=== PATIENT | female | born 1960 | race Caucasian/White ===

== ENCOUNTER 2016-12-19 09:12 | Emergency (ER) | payer SELFPAY ==
[2016-12-19] MEDS ORDERED: Nitrostat 0.4 MG (ED) SL ONE ×4 (09:29→14:48)
[2016-12-19] MEDS ORDERED: BABY ASPIRIN 81 MG CHEW PO ONE (09:29)
[2016-12-19] MEDS ORDERED: Sodium Chloride 0.9% 1000 ML 1,000 ML IV SCH (09:30)
[2016-12-19] MEDS ORDERED: BABY ASPIRIN 81 MG CHEW ONE (09:32)
[2016-12-19] MEDS ORDERED: Sodium Chloride 0.9% 1000 ML 1,000 ML ONE (09:33)
--- NOTE | 2016-12-19 09:37 | ERPHSYRPT ---
- History of Present Illness Time Seen by Provider: 12/19/16 09:20 Historian: patient Exam Limitations: clinical condition Patient Subjective Stated Complaint: CHEST PAIN FOR ONE HOUR Triage Nursing Assessment: AMBULATED TO ROOM PER SELF. SKIN W/D, COLOR NORMAL, RESP EASY. PAIN IS "5". NO EDEMA NOTED. DID HAVE SOME NAUSEA AND SOB. Physician History: PATIENT WITH HISTORY OF COPD, COMPLAINS OF ACUTE ONSET OF INDIGESTION, PRESSURE SUBSTERNAL DISCOMFORT OVER THE PAST PREVIOUS 2 HOURS. HAS ASSOCIATED LEFT ARM NUMBNESS, AND OCCASIONAL DYSPNEA, AND RADIATION OF THE PAIN TO HER BACK. DENIES COUGH, FEVER OR CHILLS. STATES HER PAIN SCALE 4/10. Timing/Duration: today Activities at Onset: none Location: substernal Chest Pain Radiation: arm, back Severity of Pain-Max: moderate Severity of Pain-Current: moderate Modifying Factors: Improves With: nothing Associated Symptoms: heartburn Prior Chest Pain/Cardiac Workup: no prior chest pain Nitro Today/Relief: 0.4 mg x 2, provided by ED Aspirin Treatment Today: 81 mg x 4, provided by ED Allergies/Adverse Reactions: betamethasone sodium phosphate [From [employer]] Allergy (Mild, Verified 12:04) "pt states blew a muscle in my back with it" Home Medications: Acetaminophen [Tylenol Arthritis] 650 mg PO Q4HPRN PRN 12/19/16 [History] Famotidine 20 mg [Pepcid 20 MG] 20 mg PO DAILY 12/19/16 [History] Hydrocodone/Acetaminophen [Hydrocodon-Acetaminoph 7.5-325] 1 each PO Q4HPRN PRN 12/19/16 [History] Lubiprostone [Amitiza] 8 mcg PO BID 12/19/16 [History] Modafinil [Provigil] 200 mg PO DAILY 12/19/16 [History] Varenicline Tartrate [Chantix] 1 mg PO DAILY 12/19/16 [History] Hx Tetanus, Diphtheria Vaccination/Date Given: Yes Hx Influenza Vaccination/Date Given: No Hx Pneumococcal Vaccination/Date Given: No - Review of Systems Constitutional: No Fever, No Chills Eyes: No Symptoms Ears, Nose, & Throat: No Symptoms Respiratory: No Symptoms, No Cough, No Dyspnea Cardiac: Chest Pain, No Edema, No Syncope Abdominal/Gastrointestinal: No Symptoms, No Abdominal Pain, No Nausea, No Vomiting, No Diarrhea Genitourinary Symptoms: No Symptoms, No Dysuria Musculoskeletal: No Symptoms, No Back Pain, No Neck Pain Skin: No Symptoms, No Rash Neurological: No Symptoms, No Dizziness, No Focal Weakness, No Sensory Changes Psychological: No Symptoms Endocrine: No Symptoms All Other Systems: Reviewed and Negative - Past Medical History Pertinent Past Medical History: Yes Neurological History: No Pertinent History ENT History: No Pertinent History Cardiac History: No Pertinent History Respiratory History: No Pertinent History Endocrine Medical History: No Pertinent History Musculoskeletal History: Arthritis, Degenerative Disk Disease GI Medical History: No Pertinent History History: No Pertinent History Psycho-Social History: No Pertinent History Female Reproductive Disorders: No Pertinent History Other Medical History: anemia,vericose veins. blisters on tongue - Past Surgical History Past Surgical History: Yes Neuro Surgical History: No Pertinent History Cardiac: No Pertinent History Respiratory: No Pertinent History Gastrointestinal: Cholecystectomy Genitourinary: No Pertinent History Musculoskeletal: No Pertinent History Female Surgical History: Hysterectomy Other Surgical History: bone spur left hand - Social History Smoking Status: Current every day smoker How long have you smoked: 20 years Exposure to second hand smoke: No Drug Use: none Patient Lives Alone: Yes - Female History Hx Now: No - Nursing Vital Signs Temperature: 97.8 F Temperature Source: Oral Pulse Rate: 85 Respiratory Rate: 16 Pain Intensity: 5 - Physical Exam General Appearance: no apparent distress, alert Eye Exam: PERRL/EOMI, eyes nml inspection Ears, Nose, Throat Exam: normal ENT inspection, moist mucous membranes Neck Exam: normal inspection, non-tender, supple, full range of motion Respiratory Exam: normal breath sounds, lungs clear, No respiratory distress Cardiovascular Exam: regular rate/rhythm, normal heart sounds Gastrointestinal/Abdomen Exam: soft, normal bowel sounds, other (NONTENDER), No tenderness, No mass Back Exam: normal inspection, No CVA tenderness, No vertebral tenderness Extremity Exam: normal inspection, normal range of motion Neurologic Exam: alert, oriented x 3, cooperative, normal mood/affect, sensation nml, No motor deficits Skin Exam: normal color, warm, dry SpO2 Interpretation: normal SpO2: 98 Oxygen Delivery: Room Air - Radiology Exams Chest X-ray Interpretation: Interpreted by me (COPD, HYPERINFLATION, NO INFILTRATES) - CT Exams Chest CT Interpretation: Tele-radiologist Report (NO EVIDENCE OF PULMONARY EMBOLISM, THERE IS MILD CENTRILOBULAR EMPHYSEMATOUS CHANGES ARE PRESENT, THERE IS NO FOCAL AIR SPACE OPACITIES) Ordered Tests: Active Orders 24 hr Category Date Time Status Supervisor Clam Bed STAT Care 12/19/16 09:29 Active EKG-ER Only STAT Care 12/19/16 09:29 Active EKG-ER Only STAT Care 12/19/16 10:48 Active EKG-ER Only STAT Care 12/19/16 13:53 Active IV Insertion STAT Care 12/19/16 09:47 Active IV Insertion-2nd Peripheral STAT Care 12/19/16 13:53 Active Oxygen-ED Only NASAL CANNULA 2 lpm Care 12/19/16 09:29 Active CHEST 1 VIEW (PORTABLE) Stat Exams 12/19/16 09:29 Taken CHEST WITH CONTRAST [CT] Stat Exams 12/19/16 10:43 Taken AMYLASE Stat Lab 12/19/16 09:15 Completed CBC W DIFF Stat Lab 12/19/16 09:15 Completed CMP Stat Lab 12/19/16 09:15 Completed D-DIMER QUANTITATION Stat Lab 12/19/16 09:15 Completed LIPASE Stat Lab 12/19/16 09:15 Completed PROTIME WITH INR Stat Lab 12/19/16 09:15 Completed TROPONIN Q3H Lab 12/19/16 09:15 Completed TROPONIN Q3H Lab 12/19/16 12:47 Completed Transfer Order Routine Transfer 12/19/16 13:29 Ordered Medication Summary Generic Name Dose Route Start Last Admin Trade Name Freq PRN Reason Stop Dose Admin Enoxaparin Sodium 50 mg 12/19/16 13:45 12/19/16 13:50 Enoxaparin Sodium SQ 01/18/17 13:44 50 mg Q12H DEBBY Administration Sodium Chloride 1,000 mls @ 100 mls/hr 12/19/16 09:30 12/19/16 09:35 Sodium Chloride 0.9% 1000 Ml IV 01/18/17 09:29 100 mls/hr .Q10H DEBBY Administration Nitroglycerin/Dextrose 250 mls @ 1.5 mls/hr 12/19/16 13:48 12/19/16 14:05 Ntg 0.2mg/Ml In D5w Glass IV 01/18/17 13:47 5 mcg/min .Q24H PRN 1.5 mls/hr CHEST PAIN Administration Protocol 5 MCG/MIN Discontinued Medications Generic Name Dose Route Start Last Admin Trade Name Lisa PRN Reason Stop Dose Admin Aspirin 324 mg 12/19/16 09:29 12/19/16 09:32 Baby Aspirin 81 Mg Chew PO 12/19/16 09:30 324 mg STAT ONE Administration Aspirin Confirm 12/19/16 09:32 Baby Aspirin 81 Mg Chew Administered 12/19/16 09:33 Dose 324 mg .ROUTE .STK-MED ONE Enoxaparin Sodium Confirm 12/19/16 13:38 Enoxaparin Sodium Administered 12/19/16 13:39 Dose 80 mg SQ .STK-MED ONE Morphine Sulfate 4 mg 12/19/16 09:42 12/19/16 09:49 Morphine Sulfate 4 Mg Inj IV 12/19/16 09:43 4 mg STAT ONE Administration Morphine Sulfate Confirm 12/19/16 09:46 Morphine Sulfate 4 Mg Inj Administered 12/19/16 09:47 Dose 4 mg .ROUTE .STK-MED ONE Nitroglycerin 0.4 mg 12/19/16 09:29 12/19/16 09:32 Nitrostat 0.4 Mg (Ed) SL 12/19/16 09:30 0.4 mg STAT ONE Administration Nitroglycerin Confirm 12/19/16 09:32 Nitrostat 0.4 Mg (Ed) Administered 12/19/16 09:33 Dose 0.4 mg SL .STK-MED ONE Nitroglycerin 0.4 mg 12/19/16 09:41 12/19/16 09:45 Nitrostat 0.4 Mg (Ed) SL 12/19/16 09:42 0.4 mg STAT ONE Administration Ondansetron HCl 4 mg 12/19/16 09:41 12/19/16 09:49 Zofran 4 Mg/2 Ml Vial IV 12/19/16 09:42 4 mg STAT ONE Administration Ondansetron HCl Confirm 12/19/16 09:46 Zofran 4 Mg/2 Ml Vial Administered 12/19/16 09:47 Dose 4 mg .ROUTE .STK-MED ONE Lab/Rad Data: Laboratory Result Diagrams 12/19/16 09:15 12/19/16 09:15 Laboratory Results 0512/19/16 12/19/16 Range/Units 12:47 09:15 09:15 WBC (4.0-10.5) K/mm3 RBC (4.1-5.4) M/mm3 Hgb (12.0-16.0) gm/dl Hct (35-47) % MCV (78-100) fl MCH (26-32) pg MCHC (32-36) g/dl RDW (11.5-14.0) % Plt Count (150-450) K/mm3 MPV (6-9.5) fl Gran % (36.0-66.0) % Lymphocytes % (24.0-44.0) % Monocytes % (0.0-12.0) % Eosinophils % (0.00-5.0) % Basophils % (0.0-0.4) % Basophils # (0-0.4) INR 0.94 (0.8-3.0) D-Dimer 0.73 H* (0.00-0.49) mg/L Sodium (136-145) mEq/L Potassium (3.5-5.1) mEq/L Chloride (98-107) mEq/L Carbon Dioxide (21-32) mEq/L Anion Gap (5-15) MEQ/L BUN (9-20) mg/dL Creatinine (0.55-1.30) mg/dl Estimated GFR ML/MIN Glucose (70-110) MG/DL Calcium (8.5-10.1) mg/dL Total Bilirubin (0.2-1.0) mg/dL AST (15-37) U/L ALT (12-78) U/L Alkaline Phosphatase (46-116) U/L Troponin I 1.400 H* < 0.017 (0.000-0.056) ng/ml Serum Total Protein (6.4-8.2) gm/dL Albumin (3.4-5.0) g/dL Amylase (25-115) U/L Lipase (73-393) U/L 12/19/16 12/19/16 Range/Units 09:15 09:15 WBC 8.6 (4.0-10.5) K/mm3 RBC 4.80 (4.1-5.4) M/mm3 Hgb 13.8 (12.0-16.0) gm/dl Hct 42.6 (35-47) % MCV 88.8 (78-100) fl MCH 28.8 (26-32) pg MCHC 32.4 (32-36) g/dl RDW 13.2 (11.5-14.0) % Plt Count 340 (150-450) K/mm3 MPV 9.7 H (6-9.5) fl Gran % 63.7 (36.0-66.0) % Lymphocytes % 24.8 (24.0-44.0) % Monocytes % 9.2 (0.0-12.0) % Eosinophils % 1.5 (0.00-5.0) % Basophils % 0.8 (0.0-0.4) % Basophils # 0.07 (0-0.4) INR (0.8-3.0) D-Dimer (0.00-0.49) mg/L Sodium 141 (136-145) mEq/L Potassium 3.7 (3.5-5.1) mEq/L Chloride 103 (98-107) mEq/L Carbon Dioxide 28.8 (21-32) mEq/L Anion Gap 12.9 (5-15) MEQ/L BUN 10 (9-20) mg/dL Creatinine 0.90 (0.55-1.30) mg/dl Estimated GFR > 60 ML/MIN Glucose 92 (70-110) MG/DL Calcium 9.8 (8.5-10.1) mg/dL Total Bilirubin 0.2 (0.2-1.0) mg/dL AST 20 (15-37) U/L ALT 24 (12-78) U/L Alkaline Phosphatase 84 (46-116) U/L Troponin I (0.000-0.056) ng/ml Serum Total Protein 7.3 (6.4-8.2) gm/dL Albumin 4.0 (3.4-5.0) g/dL Amylase 46 (25-115) U/L Lipase 130 (73-393) U/L - Progress Progress Note: 12/19/16 13:04 PATIENT GIVEN 4 BABY ASPIRIN, NTG 0.4MG SL X 2, MORPHINE SULFATE 4MG IV 12/19/16 14:00 THE 2ND TROPONIN 1.4, NO CHANGE IN EKG, PATIENT GIVEN LOVENOX 50MG SQ, IV NITROGLYCERIN INITIATED AT 5MCG/MIN TITRATE TO PAIN Discussed with Dr.: Other (DISCUSSED WITH DR BALL SENIOR LICENSING MANAGER [employer]NER OPERATOR AT [facility] ACC[facility]PTS PATIENT AT 1350) - Departure Time of Disposition: 14:40 Departure Disposition: Transfer Clinical Impression: ACUTE CHEST PAIN, NON-STEMI Condition: Stable Critical Care Time: No Referrals: TIMOTHY BAILEY [Primary Care Provider] -
[2016-12-19] MEDS ORDERED: Zofran 4 MG/2 ML VIAL IV ONE (09:41)
[2016-12-19] MEDS ORDERED: MORPHINE SULFATE 4 MG INJ IV ONE (09:42)
[2016-12-19] MEDS ORDERED: MORPHINE SULFATE 4 MG INJ ONE (09:46)
[2016-12-19] MEDS ORDERED: Zofran 4 MG/2 ML VIAL ONE (09:46)
[2016-12-19 10:22] LABS: BASOPHIL % 0.8 % (0.0-0.4); Eosinophil % 1.5 % (0.00-5.0); Granulocytes % 63.7 % (36.0-66.0); Lymphocytes % 24.8 % (24.0-44.0); Mean Cell Volume 88.8 fl (78-100); Mean Corpuscular Hemoglobin 28.8 pg (26-32); Mean Platelet Volume 9.7 fl (6-9.5); Monocytes % 9.2 % (0.0-12.0); Platelet Count 340 K/mm3 (150-450); Red Cell Distribution Width 13.2 % (11.5-14.0); White Blood Count 8.6 K/mm3 (4.0-10.5)
[2016-12-19 10:24] LABS: INR 0.94 (0.8-3.0); PROTIME 10.6 SECONDS (9.95-12.35)
[2016-12-19 10:32] LABS: ALKALINE PHOSPHATASE 84 U/L (46-116); ANION GAP 12.9 MEQ/L (5-15); BILIRUBIN,TOTAL 0.2 mg/dL (0.2-1.0); BLOOD UREA NITROGEN 10 mg/dL (9-20); CHLORIDE 103 mEq/L (98-107); Carbon Dioxide 28.8 mEq/L (21-32); Glucose 92 MG/DL (70-110); LIPASE 130 U/L (73-393); Potassium 3.7 mEq/L (3.5-5.1); SGOT/AST 20 U/L (15-37); SGPT/ALT 24 U/L (12-78); SODIUM 141 mEq/L (136-145); Total Protein 7.3 gm/dL (6.4-8.2)
[2016-12-19 12:06] VITALS: O2SAT 98
[2016-12-19] MEDS ORDERED: ENOXAPARIN SODIUM SQ ONE (13:38)
[2016-12-19] MEDS ORDERED: ENOXAPARIN SODIUM SQ SCH (13:45)
[2016-12-19] MEDS ORDERED: Ntg 0.2MG/Ml in D5W GLASS*** 250 ML IV PRN (13:48)
[2016-12-19] MEDS ORDERED: Ntg 0.2MG/Ml in D5W GLASS*** 250 ML IV ONE (14:00)
[2016-12-19 14:09] VITALS: BP 148/98
[2016-12-19 14:46] VITALS: PULSE 85
--- NOTE | 2016-12-19 21:24 | XRAY ---
Indication: Dyspnea. Comparison: May 22, 2015. Portable chest remains hyperinflated and clear. Heart and mediastinal structures within normal limits. Bony thorax intact. Impression: Stable nonacute hyperinflated chest.
--- NOTE | 2016-12-19 21:28 | XRAY ---
Indication: Chest pain and short of breath. Elevated d-dimer. Multiple contiguous axial images obtained through the chest using 100 cc of Isovue-370 contrast and PE protocol. Comparison: June 05, 2015. There is good opacification of the pulmonary arteries to include the lobar and segmental branches. Again no filling defect or pulmonary embolus. Heart is not enlarged. Aorta is normal in course and caliber. No pathologic mediastinal/hilar lymphadenopathy. Examination of the lung parenchyma again demonstrates mild emphysematous changes in both upper lobes and minimal dependent atelectasis bilaterally. New 4 mm nodule in the inferior right upper lobe (image 35, series 4). No infiltrate or effusion. Minimal inferior lingular fibrosis/scarring. Bony thorax intact. Limited upper abdomen unremarkable. Impression: 1. Again negative for pulmonary embolus or acute cardiopulmonary abnormalities. 2. Stable mild pulmonary emphysema. 3. New indeterminate right upper lobe noncalcified micronodule. Recommend follow-up per Fleischner guidelines. Comment: Preliminary interpretation was made by [facility]. No critical discrepancy. CT DI 13.33
== END 2016-12-19 14:48 | disposition short-term general hospital (02) ==
LOC: ED 09:12
DX: I21.4 Non-ST elevation (NSTEMI) myocardial infarction (principal); R07.9 Chest pain, unspecified
CPT/HCPCS: 36000; 36415; 71010; 71260; 80053; 82150; 83690; 84484; 85025; 85379; 85610; 93005; 93041; 96360; 96361; 96365; 96372; 96374; 96375; 99285; J1650; J2270; J2405; A9270-GY

== ENCOUNTER 2017-04-03 11:23 | Emergency (ER) | payer OTHER, SELFPAY ==
[2017-04-03] MEDS ORDERED: Norflex 60 MG/2 ML IM ONE (11:47)
[2017-04-03] MEDS ORDERED: TORAdol 30 mg Injection IM ONE (11:47)
--- NOTE | 2017-04-03 11:50 | ERPHSYRPT ---
- History of Present Illness Time Seen by Provider: 04/03/17 11:48 Source: patient Exam Limitations: no limitations Patient Subjective Stated Complaint: pt states on 04/02/17 she bent down to cloth picker her grandson and a few hours merari noticed pain in right ribs. states she has had hx of pancreatits and pluerisy in he past. states pain is worse upon moving and deep breathing. Triage Nursing Assessment: pt pink, warm, dry. pt ambulated into er without difficulty. pt lung sounds clear and equal. no deformities noted. no diarrhea, nausea or vomiting. pt afebrile. Physician History: pt states on 04/02/17 she bent down to cloth picker her grandson and a few hours later noticed pain in right ribs. states she has had hx of pancreatits and pluerisy in he past. states pain is worse upon moving and deep breathing. Timing/Duration: today Severity: moderate Associated Symptoms: denies symptoms Allergies/Adverse Reactions: betamethasone sodium phosphate [From [employer]] Allergy (Mild, Verified 11:38) "pt states blew a muscle in my back with it" Home Medications: Acetaminophen [Tylenol Arthritis] 650 mg PO Q4HPRN PRN 12/19/16 [History] Lubiprostone [Amitiza] 8 mcg PO BID 12/19/16 [History] Aspirin [Aspirin EC] 81 mg PO DAILY 04/03/17 [History] Carvedilol 3.125 mg [Coreg 3.125 MG] 3.125 mg PO DAILY 04/03/17 [History] Clopidogrel Bisulfate 75 mg [PLAVIX 75 MG Tablet] 75 mg PO DAILY 04/03/17 [History] Pantoprazole Sodium [Protonix] 40 mg PO DAILY 04/03/17 [History] Hx Tetanus, Diphtheria Vaccination/Date Given: Yes (unknown) Hx Influenza Vaccination/Date Given: No Hx Pneumococcal Vaccination/Date Given: No Immunizations Up to Date: Yes - Review of Systems Constitutional: No Fever, No Chills Eyes: No Symptoms Ears, Nose, & Throat: No Symptoms Respiratory: No Cough, No Dyspnea Cardiac: No Chest Pain, No Edema, No Syncope Abdominal/Gastrointestinal: No Abdominal Pain, No Nausea, No Vomiting, No Diarrhea Genitourinary Symptoms: No Dysuria Musculoskeletal: Other (right side rib cage pain), No Back Pain, No Neck Pain Skin: No Rash Neurological: No Dizziness, No Focal Weakness, No Sensory Changes Psychological: No Symptoms Endocrine: No Symptoms All Other Systems: Reviewed and Negative - Past Medical History Pertinent Past Medical History: Yes Neurological History: No Pertinent History ENT History: No Pertinent History Cardiac History: No Pertinent History, Coronary Artery Disease, Hypertension Respiratory History: No Pertinent History Endocrine Medical History: No Pertinent History Musculoskeletal History: Arthritis, Degenerative Disk Disease GI Medical History: No Pertinent History, Irritable Bowel, Pancreatitis History: No Pertinent History Psycho-Social History: No Pertinent History Female Reproductive Disorders: No Pertinent History Other Medical History: anemia,vericose veins. blisters on tongue - Past Surgical History Past Surgical History: Yes Neuro Surgical History: No Pertinent History Cardiac: Cardiac Catheterization Respiratory: No Pertinent History Gastrointestinal: Cholecystectomy Genitourinary: No Pertinent History Musculoskeletal: No Pertinent History Female Surgical History: Hysterectomy Other Surgical History: bone spur left hand - Social History Smoking Status: Former smoker How long have you smoked: 20 years Exposure to second hand smoke: No Drug Use: none Patient Lives Alone: No - Female History Hx Now: No - Nursing Vital Signs Nursing Vital Signs: Initial Vital Signs Temperature 99.1 F 04/03/17 11:30 Pulse Rate 73 04/03/17 11:30 Respiratory Rate 18 04/03/17 11:30 Blood Pressure 123/78 04/03/17 11:30 O2 Sat by Pulse Oximetry 99 04/03/17 11:30 Pain Scale Pain Intensity 10 - Physical Exam General Appearance: no apparent distress, alert Eye Exam: PERRL/EOMI, eyes nml inspection Ears, Nose, Throat Exam: normal ENT inspection, TMs normal, pharynx normal, moist mucous membranes Neck Exam: normal inspection, non-tender, supple, full range of motion Respiratory Exam: normal breath sounds, lungs clear, other (right side chest wall tenderness), No respiratory distress, No pleural rub Cardiovascular Exam: regular rate/rhythm, normal heart sounds, normal peripheral pulses Gastrointestinal/Abdomen Exam: soft, normal bowel sounds, No tenderness, No mass Back Exam: normal inspection, normal range of motion, No CVA tenderness, No vertebral tenderness Extremity Exam: normal inspection, normal range of motion, pelvis stable Neurologic Exam: alert, oriented x 3, cooperative, normal mood/affect, nml cerebellar function, nml station & gait, sensation nml, No motor deficits Skin Exam: normal color, warm, dry, No rash Lymphatic Exam: No adenopathy SpO2: 99 Oxygen Delivery: Room Air - Course Nursing assessment & vital signs reviewed: Yes - Radiology Exams Chest X-ray Interpretation: Reviewed by me, Negative, No Fracture Ordered Tests: Active Orders 24 hr Category Date Time Status CHEST 2 VIEWS (PA AND LAT) Stat Exams 04/03/17 11:46 Taken Medication Summary Discontinued Medications Generic Name Dose Route Start Last Admin Trade Name Lisa PRN Reason Stop Dose Admin Ketorolac Tromethamine 60 mg 04/03/17 11:47 04/03/17 11:57 Toradol 30 Mg Injection IM 04/03/17 11:48 60 mg STAT ONE Administration Ketorolac Tromethamine Confirm 04/03/17 11:52 Toradol 30 Mg Injection Administered 04/03/17 11:53 Dose 60 mg .ROUTE .STK-MED ONE Orphenadrine Citrate 60 mg 04/03/17 11:47 04/03/17 11:57 Norflex 60 Mg/2 Ml IM 04/03/17 11:48 60 mg STAT ONE Administration Orphenadrine Citrate Confirm 04/03/17 11:52 Norflex 60 Mg/2 Ml Administered 04/03/17 11:53 Dose 60 mg .ROUTE .STK-MED ONE - Progress Progress: improved Counseled pt/family regarding: diagnosis, need for follow-up, rad results - Departure Time of Disposition: 12:25 Departure Disposition: Home Clinical Impression: Rib pain on right side Condition: Stable Critical Care Time: No Referrals: JANES PALACIO [Primary Care Provider] - Instructions: Rib Contusion Additional Instructions: You have suffered a right side of the cage contusion probably due to pulled muscle. Apply Salonpas patch on affected area of pain. Follow-up with your primary care doctor tomorrow. Please follow the instructions given to you. Please take your medication as prescribed if given. If symptoms recur or get worse, come back to the emergency room if you cannot reach your primary care physician, or call your primary care physician for an appointment. Again if your symptoms get worse, come back to the emergency room. Thanks for visiting emergency room, and let us take care of you. Prescriptions: Cyclobenzaprine HCl 10 mg PO TID #30 tablet Naproxen 375 mg [Naprosyn 375 mg] 375 mg PO Q8H #30 tablet
[2017-04-03] MEDS ORDERED: Norflex 60 MG/2 ML ONE (11:52)
[2017-04-03] MEDS ORDERED: TORAdol 30 mg Injection ONE (11:52)
[2017-04-03 12:57] VITALS: BP 106/63; PULSE 78; O2SAT 98
--- NOTE | 2017-04-03 21:08 | XRAY ---
Indication: Right rib pain. Comparison: December 19, 2016. PA/lateral chest remains hyperinflated and clear with again incidental mediastinal calcified nodes. Heart is not enlarged. Bony thorax intact. Impression: Stable nonacute hyperinflated chest.
== END 2017-04-03 12:58 | disposition home or self-care (01) ==
LOC: ED 11:23
DX: R07.81 Pleurodynia (principal); I25.10 Atherosclerotic heart disease of native coronary artery without angina pectoris; I10 Essential (primary) hypertension; K86.1 Other chronic pancreatitis
CPT/HCPCS: 71020; 96372; 99282; 99284; J1885; J2360

== ENCOUNTER 2017-08-15 14:07 | Observation (INO) | payer OTHER ==
[2017-08-15] MEDS ORDERED: Sodium Chloride 0.9% 1000 ML 1,000 ML IV SCH (15:30)
[2017-08-15] MEDS ORDERED: Zofran 4 MG/2 ML VIAL IV ONE (15:30)
[2017-08-15] MEDS ORDERED: Hydromorphone 1 mg/ml Ampule IV ONE ×2 (15:30→16:42)
--- NOTE | 2017-08-15 15:39 | ERPHSYRPT ---
- History of Present Illness Time Seen by Provider: 08/15/17 15:25 Source: patient Patient Subjective Stated Complaint: FELL ON ICE JUST PRIOR TO ARRIVAL. PAIN TO LEFT WRIST AND LEFT UPPER LEG Triage Nursing Assessment: LEFT ARM WARM TO TOUCH, NORMAL COLOR. LEFT LEG WARM TO TOUCH AND NORMAL COLOR. GOOD PULSES. SLIGHT DEFORMITY OF LEFT WRIST. Physician History: CC: fall Hx: 57 y/o patient of Dr Navarrete slipped on the ice and landed on left side. She has pain in left wrist and left hip area. No head injury. No neck or back pain. no chest pain or abd pain. She has severe pain in left wrist. There is some swelling. She has pain in left hip and inner hip area. No LOC. No N/T/W. She last ate lunch at 12:30. Tetanus vaccine utd. Occurred: just prior to arrival Severity of Pain-Max: severe Severity of Pain-Current: severe Allergies/Adverse Reactions: betamethasone sodium phosphate [From [employer]] Allergy (Mild, Verified 15:24) "pt states blew a muscle in my back with it" Home Medications: Aspirin [Aspirin EC] 81 mg PO DAILY 04/03/17 [History] Carvedilol 3.125 mg [Coreg 3.125 MG] 3.125 mg PO BID 04/03/17 [History] Clopidogrel Bisulfate 75 mg [PLAVIX 75 MG Tablet] 75 mg PO DAILY 04/03/17 [History] Atorvastatin Calcium 10 mg PO DAILY 04/22/17 [History] Lubiprostone [Amitiza] 8 mg PO BID 08/15/17 [History] Hx Tetanus, Diphtheria Vaccination/Date Given: Yes Hx Influenza Vaccination/Date Given: No Hx Pneumococcal Vaccination/Date Given: No - Review of Systems Constitutional: No Symptoms Eyes: No Vision Changes Ears, Nose, & Throat: No Symptoms Respiratory: No Dyspnea Cardiac: No Chest Pain Abdominal/Gastrointestinal: No Abdominal Pain, No Nausea, No Vomiting Musculoskeletal: Fall, Joint Pain (left wrist/left hip), No Back Pain, No Neck Pain Skin: No Rash Neurological: No Focal Weakness, No Headache, No Parasthesia All Other Systems: Reviewed and Negative - Past Medical History Pertinent Past Medical History: Yes Neurological History: No Pertinent History ENT History: No Pertinent History Cardiac History: Angina, High Cholesterol, Hypertension, Myocardial Infarction ( [place]) Respiratory History: Asthma, Bronchitis, COPD Endocrine Medical History: No Pertinent History Musculoskeletal History: Arthritis, Degenerative Disk Disease GI Medical History: No Pertinent History, Irritable Bowel, Pancreatitis History: No Pertinent History Psycho-Social History: No Pertinent History Female Reproductive Disorders: No Pertinent History Other Medical History: [place] - Past Surgical History Past Surgical History: Yes Neuro Surgical History: No Pertinent History Cardiac: Cardiac Catheterization Respiratory: No Pertinent History Gastrointestinal: Cholecystectomy Genitourinary: No Pertinent History Musculoskeletal: No Pertinent History Female Surgical History: Hysterectomy Other Surgical History: bone spur left hand - Social History Smoking Status: Former smoker How long have you smoked: 20 years Exposure to second hand smoke: Yes Drug Use: none Patient Lives Alone: No - Female History Hx Now: No - Nursing Vital Signs Nursing Vital Signs: Initial Vital Signs Temperature 98.6 F 08/15/17 15:16 Pulse Rate 79 08/15/17 15:16 Respiratory Rate 16 08/15/17 15:16 Blood Pressure 105/40 08/15/17 15:16 Pain Scale Pain Intensity 10 - [place] Coma Score Best Eye Response ([place]): (4) open spontaneously Best Verbal Response ([place]): (5) oriented Best Motor Response ([place]): (6) obeys commands [place] Total: 15 - Physical Exam General Appearance: alert Head Injury: no evidence of injury Eye Exam: PERRL/EOMI ENT Exam: airway nml Neck Exam: full range of motion, No mid-line tenderness Respiratory/Chest Exam: normal breath sounds, No chest tenderness Cardiovascular Exam: normal heart sounds, regular rate/rhythm Gastrointestinal Exam: soft, No tenderness, No distention Back Exam: normal inspection, No vertebral tenderness Extremity Exam: pelvis stable, tenderness (left wrist with swelling over scaphoid, no hand or elbow tenderness. Left hip tenderness with decreased ROM.) Neurologic Exam: alert, oriented x 3, cooperative, marketing development specialist II-XII nml as tested, sensation nml, No motor deficits Skin Exam: warm, dry, No rash Procedures - Splinting Location of Splint: Left, Wrist Type of Splint: Orthoglass Short Arm Splint Splint Applied By: ED Physician Pre-Proc Neuro Vasc Exam: normal Post-Proc Neuro Vasc Exam: neurovascular intact - Course Nursing assessment & vital signs reviewed: Yes - Radiology Exams wrist/forearm X-ray Interpretation: Teleradiologist Report (distal radius fx) - CT Exams pelvis CT Interpretation: Tele-radiologist Report (left inferior pubic bone fracture) Ordered Tests: Active Orders 24 hr Category Date Time Status Cold Application STAT Care 08/15/17 15:30 Active IV Insertion STAT Care 08/15/17 15:30 Active NPO (ED) STAT Care 08/15/17 15:30 Active Sling Application STAT Care 08/15/17 16:09 Active Splint STAT Care 08/15/17 16:09 Active FOREARM Stat Exams 08/15/17 15:31 Completed HIP UNI (2V) INCL PEL IF DONE Stat Exams 08/15/17 15:31 Completed PELVIS WITHOUT CONTRAST [CT] Stat Exams 08/15/17 16:13 Completed WRIST (MIN 3 VIEWS) Stat Exams 08/15/17 15:31 Completed CBC W DIFF Stat Lab 08/15/17 15:40 Completed CMP Stat Lab 08/15/17 15:32 Completed PROTIME WITH INR Stat Lab 08/15/17 15:40 Completed PTT Stat Lab 08/15/17 15:40 Completed Medication Summary Generic Name Dose Route Start Last Admin Trade Name Freq PRN Reason Stop Dose Admin Sodium Chloride 1,000 mls @ 100 mls/hr 08/15/17 15:30 08/15/17 16:11 Sodium Chloride 0.9% 1000 Ml IV 09/14/17 15:29 100 mls/hr .Q10H DEBBY Administration Discontinued Medications Generic Name Dose Route Start Last Admin Trade Name Freq PRN Reason Stop Dose Admin Hydromorphone HCl 1 mg 08/15/17 15:30 08/15/17 16:12 Hydromorphone 1 Mg/Ml Ampule IV 08/15/17 15:31 1 mg STAT ONE Administration Hydromorphone HCl Confirm 08/15/17 15:59 Hydromorphone 1 Mg/Ml Ampule Administered 08/15/17 16:00 Dose 1 mg .ROUTE .STK-MED ONE Hydromorphone HCl 1 mg 08/15/17 16:42 08/15/17 16:52 Hydromorphone 1 Mg/Ml Ampule IV 08/15/17 16:43 1 mg STAT ONE Administration Hydromorphone HCl Confirm 08/15/17 16:51 Hydromorphone 1 Mg/Ml Ampule Administered 08/15/17 16:52 Dose 1 mg .ROUTE .STK-MED ONE Ondansetron HCl 4 mg 08/15/17 15:30 08/15/17 16:12 Zofran 4 Mg/2 Ml Vial IV 08/15/17 15:31 4 mg STAT ONE Administration Ondansetron HCl Confirm 08/15/17 15:59 Zofran 4 Mg/2 Ml Vial Administered 08/15/17 16:00 Dose 4 mg .ROUTE .STK-MED ONE Lab/Rad Data: Laboratory Result Diagrams 08/15/17 15:40 08/15/17 15:32 Laboratory Results 08/15/17 08/15/17 08/15/17 Range/Units 15:40 15:40 15:32 WBC 8.4 (4.0-10.5) K/mm3 RBC 4.24 (4.1-5.4) M/mm3 Hgb 11.7 L (12.0-16.0) gm/dl Hct 37.2 (35-47) % MCV 87.7 (78-100) fl MCH 27.5 (26-32) pg MCHC 31.5 L (32-36) g/dl RDW 13.4 (11.5-14.0) % Plt Count 308 (150-450) K/mm3 MPV 9.2 (6-9.5) fl Gran % 64.0 (36.0-66.0) % Lymphocytes % 22.6 L (24.0-44.0) % Monocytes % 10.4 (0.0-12.0) % Eosinophils % 2.3 (0.00-5.0) % Basophils % 0.7 (0.0-0.4) % Basophils # 0.06 (0-0.4) INR 0.97 (0.8-3.0) APTT 29.1 (25.3-37.0) SECONDS Sodium 142 (136-145) mEq/L Potassium 4.3 (3.5-5.1) mEq/L Chloride 105 (98-107) mEq/L Carbon Dioxide 28.7 (21-32) mEq/L Anion Gap 12.3 (5-15) MEQ/L BUN 14 (9-20) mg/dL Creatinine 0.77 (0.55-1.30) mg/dl Estimated GFR > 60 ML/MIN Glucose 101 (70-110) MG/DL Calcium 9.8 (8.5-10.1) mg/dL Total Bilirubin 0.20 (0.2-1.0) mg/dL AST 22 (15-37) U/L ALT 32 (12-78) U/L Alkaline Phosphatase 75 (46-116) U/L Serum Total Protein 7.0 (6.4-8.2) gm/dL Albumin 3.8 (3.4-5.0) g/dL - Progress Progress Note: 08/15/17 17:07 Pt prefers to go home with OP follow up. She requests [facility] clinic. Called Dr Bryant who advised ok to release with limited weight bearing and splint if pain controlled. Pt wants to go home. Will Rx walker. Instr given. 08/15/17 17:11 Offered observation. Dilaudid was given here. She does not want to stay in the hospital as she does not want to get the flu. Counseled pt/family regarding: lab results, diagnosis, need for follow-up, rad results - Departure Time of Disposition: 17:11 Departure Disposition: Home Clinical Impression: Fall from slipping on ice, Fracture of left distal radius, left pubic bone fracture Condition: Stable Critical Care Time: No Referrals: SAULO BRYANT MD [COURTESY STAFF] - Instructions: Wrist Fracture, Pelvic Fracture, Choose and Use a Walker Additional Instructions: No driving and stay with family tonite. Rx norco. Ice packs, splint left arm. Walker with limited weight bearing. Go to [facility] tomorrow AM for 8AM fracture clinic. Return for problems or concerns. Prescriptions: Hydrocodone/APAP 5/325 [[place] 5/325 mg] 1 each PO Q4-6HPRN PRN #20 tablet MDD 5 PRN Reason: Pain
[2017-08-15 15:52] LABS: BASOPHIL % 0.7 % (0.0-0.4); Basophil (Absolute #) 0.06 (0-0.4); Eosinophil % 2.3 % (0.00-5.0); Eosinophil (Absolute #) 0.19 (0-0.5); Hematocrit 37.2 % (35-47); Hemoglobin 11.7 gm/dl (12.0-16.0); Lymphocyte (Absolute #) 1.91 (1.0-4.6); Lymphocytes % 22.6 % (24.0-44.0); Mean Cell Volume 87.7 fl (78-100); Mean Corpuscular Hgb Concent. 31.5 g/dl (32-36); Mean Platelet Volume 9.2 fl (6-9.5); Monocyte (Absolute #) 0.88 (0.0-1.3); Monocytes % 10.4 % (0.0-12.0); Platelet Count 308 K/mm3 (150-450); Red Blood Count 4.24 M/mm3 (4.1-5.4); Red Cell Distribution Width 13.4 % (11.5-14.0); White Blood Count 8.4 K/mm3 (4.0-10.5)
[2017-08-15 15:58] LABS: Mean Corpuscular Hemoglobin 27.5 pg (26-32)
[2017-08-15] MEDS ORDERED: Hydromorphone 1 mg/ml Ampule ONE ×2 (15:59→16:51)
[2017-08-15] MEDS ORDERED: Sodium Chloride 0.9% 1000 ML 1,000 ML ONE (15:59)
[2017-08-15] MEDS ORDERED: Zofran 4 MG/2 ML VIAL ONE (15:59)
[2017-08-15 16:07] LABS: INR 0.97 (0.8-3.0)
[2017-08-15 16:09] LABS: PTT 29.1 SECONDS (25.3-37.0)
[2017-08-15 16:15] LABS: ALBUMIN 3.8 g/dL (3.4-5.0); ALKALINE PHOSPHATASE 75 U/L (46-116); ANION GAP 12.3 MEQ/L (5-15); BLOOD UREA NITROGEN 14 mg/dL (9-20); CHLORIDE 105 mEq/L (98-107); Calcium 9.8 mg/dL (8.5-10.1); Carbon Dioxide 28.7 mEq/L (21-32); Creatinine 1 0.77 mg/dl (0.55-1.30); EST GLOMERULAR FILTRATION RATE > 60 ML/MIN; Glucose 101 MG/DL (70-110); Potassium 4.3 mEq/L (3.5-5.1); SGOT/AST 22 U/L (15-37); SGPT/ALT 32 U/L (12-78); SODIUM 142 mEq/L (136-145)
--- NOTE | 2017-08-15 16:25 | XRAY ---
Indication: Pain following fall. Comparison: None AP pelvis and 2 views of the left hip demonstrates nondisplaced left superior and inferior pubic bone fractures. No other bony, articular, or soft tissue abnormalities.
--- NOTE | 2017-08-15 16:27 | XRAY ---
Indication: Pain following fall. Comparison: None 3 views of the left wrist demonstrates complete transverse fracture involving the distal metadiaphysis of the radius with soft tissue swelling and minimally displaced posterior cortical fracture fragment. No other bony, articular, or soft tissue abnormalities.
--- NOTE | 2017-08-15 16:27 | XRAY ---
Indication: Pain following fall. Comparison: None 2 views of the left forearm demonstrates fracture of the distal radius reported separately on same day wrist exam. No other bony, articular, or soft tissue abnormalities.
--- NOTE | 2017-08-15 16:35 | XRAY ---
Indication: Left hip pain following fall. Fracture reported on same day radiograph. Multiple contiguous axial images obtained through the pelvis with special attention to the osseous structures. Two-dimensional sagittal and coronal reformatted images obtained. Comparison: CT abdomen/pelvis December 26, 2014. Osseous structures demineralized consistent with patient's age. There is now nondisplaced fracture involving the mid left inferior pubic bone. No other acute fracture, dislocation, or suspicious bony lesions. Stable mild degenerative changes of the lower lumbar spine. Visualized noncontrasted soft tissues unremarkable. Impression: Nondisplaced left inferior pubic bone acute fracture. Incidental osteopenia and degenerative changes. CTDI 18.10
[2017-08-15] MEDS: Zofran 4 MG/2 ML VIAL IV PRN (21:09)
[2017-08-15] MEDS: DILAUDID 2 MG INJECTION IV PRN (21:10)
[2017-08-15] MEDS: Dextrose 5%-Lr IV Solution 1000 ML 1,000 ML IV SCH (21:10)
[2017-08-15] MEDS ORDERED: Coreg 3.125 MG PO ONE (22:00)
[2017-08-16] MEDS: DILAUDID 2 MG INJECTION IV PRN ×2 (01:12→05:03)
[2017-08-16] MEDS: Zofran 4 MG/2 ML VIAL IV PRN (05:02)
[2017-08-16] MEDS: Dextrose 5%-Lr IV Solution 1000 ML 1,000 ML IV SCH (07:38)
[2017-08-16] MEDS ORDERED: NORCO 5/325 MG PO PRN (09:01)
--- NOTE | 2017-08-16 09:10 | HP ---
CHIEF COMPLAINT: Left arm pain and fall causing pain in the left side of buttocks. HISTORY OF PRESENT ILLNESS: The patient is a 57 year-old white female who fell on the ice. She presented herself to the emergency room with left upper leg and left wrist pain. PAST MEDICAL/SURGICAL HISTORY: Myocardial infarction earlier this year. She did not have any stents placed. She is under the care of a customer operations associate. She also sees a pulmonary doctor as well. She does have history of chronic obstructive pulmonary disease, previous smoker. She also has degenerative disc disease, history of irritable bowel, pancreatitis. MEDICATIONS: Current home medications include aspirin 81 mg a day, atorvastatin 10 mg a day, carvedilol 3.125 mg b.i.d., Plavix 75 mg daily, hydrocodone 5/325 mg every four hours PRN, Amitiza 8 mg b.i.d. ALLERGIES: BETAMETHASONE. PHYSICAL EXAMINATION: Reveals a well nourished, well developed 57 year-old white female currently in no obvious distress. HEENT: Normocephalic, atraumatic. Pupils equal round reactive to light. Extraocular movements intact. Oropharynx is pink and moist. NECK: Supple without lymphadenopathy, thyromegaly or JVD. CHEST: Clear to auscultation with good air movement bilaterally. EXTREMITIES: The left wrist is currently in a splint. No clubbing, cyanosis or edema in the extremities. NEUROLOGIC: The patient is alert and oriented x3. No focal deficits noted. LAB DATA AND TESTS: Laboratory studies reveal an entirely normal metabolic panel and a normal CBC. Her international normalized ratio is 0.97. AP pelvis shows nondisplaced left superior and inferior pubic bone fracture. The left wrist shows complete transverse fracture involving the distal metastasis of the radius with minimally displaced posterior cortical fracture fragment. ASSESSMENT: A patient with fractures. The patient was admitted to the hospital due to her inability to ambulate with pubic ramus fracture. She is unable to use crutches or walker due to the left wrist fracture. The patient was placed in the hospital for pain control. She was placed on IV fluids for hydration. She is to have an orthopedic consultation. Hopefully she will have the left wrist casted and plan for her ability to ambulate due to the pubic ramus fracture.
[2017-08-16] MEDS: Phenergan 25 MG INJ IV PRN ×2 (09:27→16:47)
[2017-08-16] MEDS ORDERED: MEDICATION INTERVENTION MC SCH (10:00)
[2017-08-16] MEDS ORDERED: NON-FORMULARY ITEM (Atorvastatin Calcium [Atorvastatin Calcium] 10 MG) PO SCH (10:00)
[2017-08-16] MEDS ORDERED: FLUCELVAX QUAD 2017-2018 SYR IM ONE ×2 (10:00→15:30)
[2017-08-16] MEDS ORDERED: LUBIPROSTONE 8 MG PO SCH (10:00)
[2017-08-16] MEDS: PLAVIX 75 MG Tablet PO SCH (12:36)
[2017-08-16] MEDS: Norco 10/325 MG Tablet PO PRN ×3 (12:36→21:27)
[2017-08-16] MEDS: Coreg 3.125 MG PO SCH ×2 (12:36→21:27)
[2017-08-16] MEDS: ECOTRIN 81 MG PO SCH (12:36)
[2017-08-16] MEDS: Zocor 10MG PO SCH (12:36)
[2017-08-16] MEDS ORDERED: Sodium Chloride 0.9% 10 ML FLUSH Syringe IV SCH (22:00)
[2017-08-17] MEDS: TYLENOL 325 MG PO PRN ×2 (04:19→09:18)
[2017-08-17] MEDS: PROVENTIL COMMON CANISTER IH SCH ×2 (07:10→10:55)
[2017-08-17] MEDS: Phenergan 25 MG INJ IV PRN (09:09)
[2017-08-17] MEDS: Zocor 10MG PO SCH (09:11)
[2017-08-17] MEDS: PLAVIX 75 MG Tablet PO SCH (09:11)
[2017-08-17] MEDS: Coreg 3.125 MG PO SCH (09:11)
[2017-08-17] MEDS: ECOTRIN 81 MG PO SCH (09:11)
[2017-08-17 11:01] VITALS: O2SAT 96
--- NOTE | 2017-08-17 11:22 | PCM.DCORD ---
- Discharge Discharge Date: 08/17/17 Disposition: Home, Self-Care Condition: Stable Prescriptions: New Hydrocodone/APAP 10/325 mg [[place] 10/325 MG Tablet] 1 tab PO Q6H PRN PRN #28 tablet MDD 4 PRN Reason: Pain Continue Clopidogrel Bisulfate 75 mg [PLAVIX 75 MG Tablet] 75 mg PO DAILY Aspirin [Aspirin EC] 81 mg PO DAILY Carvedilol 3.125 mg [Coreg 3.125 MG] 3.125 mg PO BID Atorvastatin Calcium 10 mg PO DAILY Lubiprostone [Amitiza] 8 mg PO BID Instructions: Wrist Fracture, Pelvic Fracture Additional Instructions: USE CRUTCH DIRECTED TO ASSIST WITH WALKING ICE NEEDED TO HELP WITH PAIN KEEP SCHEDULED FOLLOWUP APPOINTMENTS [facility] WILL CALL YOU TO ARRANGE YOUR FIRST VISIT. Follow up with: SAULO PARIKH MD [COURTESY STAFF] - 08/19/17 9:15 am (At [place] office, beside [facility].)
[2017-08-17 12:26] VITALS: BP 87/50; PULSE 65
== END 2017-08-17 14:45 | disposition home or self-care (01) ==
LOC: ED 14:07 → MED SURG 19:16
PROVIDERS: ADMIT Family Medicine; ATTEND Family Medicine
DX: S32.599A Other specified fracture of unspecified pubis, initial encounter for closed fracture (principal); W00.0XXA Fall on same level due to ice and snow, initial encounter; Y93.9 Activity, unspecified; Y92.9 Unspecified place or not applicable; M79.602 Pain in left arm; M79.652 Pain in left thigh; M25.532 Pain in left wrist; I25.2 Old myocardial infarction; J44.9 Chronic obstructive pulmonary disease, unspecified; K86.1 Other chronic pancreatitis; K58.9 Irritable bowel syndrome, unspecified; Z87.891 Personal history of nicotine dependence; Z79.899 Other long term (current) drug therapy
CPT/HCPCS: 36000; 36415; 72192; 73090; 73110; 73502; 80053; 85025; 85610; 85730; 94640; 94760; 96360; 96361; 96374; 96375; 96376; 99285; G0008; G0378; J1170; J2405; J2550; 90682; A9270-GY

== ENCOUNTER 2017-10-02 14:50 | Emergency (ER) | payer OTHER ==
[2017-10-02 15:07] VITALS: O2SAT 99
--- NOTE | 2017-10-02 15:53 | ERPHSYRPT ---
- History of Present Illness Time Seen by Provider: 10/02/17 15:44 Source: patient Exam Limitations: no limitations Patient Subjective Stated Complaint: patient broke her hand on aug 15 got cast off sep 16 got brace off two weeks later and on riday fell nad landed on hand having shooting pains in left hand and extreme pain Triage Nursing Assessment: pt alert and oriented x3, lung sounds clear, gait is steady, ambulates by self, left hand swollend and tender, unable to pronate, pusles present, cap refill immediate. skin warm dry and intact. Physician History: The patient is a right-handed 57-year-old female who comes in complaining of left wrist pain. On August 15 she fell on the ice causing a fracture of her left wrist. She was placed in a cast for 4 weeks and then following the cast removal, she was placed in a wrist brace for 2 weeks. She had the brace removed last week and had been doing physical therapy. There was still pain in her wrist. However, Tuesday night she tripped on a rug and hit her hand on the wall causing pain in her left wrist. She now has more swelling and pain in her left wrist. Her past medical history is significant for left wrist fracture, arthritis, hypertension, GERD, and high cholesterol. Occurred: days ago (2) Reason for Fall: tripped, fell from standing pos Injuries/Pain Location: upper extremity (left wrist) Loss of Consciousness: no loss of consciousness Quality: sharpness Severity of Pain-Max: moderate Severity of Pain-Current: moderate Modifying Factors: Improves With: pain medication Associated Symptoms (Fall): denies symptoms Allergies/Adverse Reactions: betamethasone sodium phosphate [From [employer]] Allergy (Mild, Verified 15:24) "pt states blew a muscle in my back with it" Home Medications: Aspirin [Aspirin EC] 81 mg PO DAILY 04/03/17 [History] Carvedilol 3.125 mg [Coreg 3.125 MG] 3.125 mg PO BID 04/03/17 [History] Clopidogrel Bisulfate 75 mg [PLAVIX 75 MG Tablet] 75 mg PO DAILY 04/03/17 [History] Atorvastatin Calcium 10 mg PO DAILY 04/22/17 [History] Celecoxib 100 mg [celeBREX 100 MG] 100 mg PO DAILY 08/24/17 [History] Cyclobenzaprine HCl 10 mg [Cyclobenzaprine 10 MG] 10 mg PO TID 08/24/17 [ History] Gabapentin [Neurontin] 1 - 2 tab PO TIDPRN PRN 08/24/17 [History] PANTOPRAZOLE 40 mg Tablet [Protonix 40MG Tablet] 40 mg PO DAILY 08/24/17 [ History] Hx Tetanus, Diphtheria Vaccination/Date Given: Yes Hx Influenza Vaccination/Date Given: No Hx Pneumococcal Vaccination/Date Given: No Immunizations Up to Date: Yes - Review of Systems Constitutional: No Fever, No Chills Eyes: No Symptoms Ears, Nose, & Throat: No Symptoms Respiratory: No Cough, No Dyspnea Cardiac: No Chest Pain, No Edema, No Syncope Abdominal/Gastrointestinal: No Abdominal Pain, No Nausea, No Vomiting, No Diarrhea Genitourinary Symptoms: No Dysuria Musculoskeletal: Fall, Injury, Joint Pain Skin: No Rash Neurological: No Dizziness, No Focal Weakness, No Sensory Changes Psychological: No Symptoms Endocrine: No Symptoms Hematologic/Lymphatic: No Symptoms Immunological/Allergic: No Symptoms All Other Systems: Reviewed and Negative - Past Medical History Pertinent Past Medical History: Yes Neurological History: No Pertinent History ENT History: No Pertinent History Cardiac History: Angina, High Cholesterol, Hypertension, Myocardial Infarction ( [place]) Respiratory History: Asthma, Bronchitis, COPD Endocrine Medical History: No Pertinent History Musculoskeletal History: Arthritis, Degenerative Disk Disease GI Medical History: Irritable Bowel, Pancreatitis History: No Pertinent History Psycho-Social History: No Pertinent History Female Reproductive Disorders: No Pertinent History Other Medical History: [place], uterine cancer - Past Surgical History Past Surgical History: Yes Neuro Surgical History: No Pertinent History Cardiac: Cardiac Catheterization Respiratory: No Pertinent History Gastrointestinal: Cholecystectomy Genitourinary: No Pertinent History Musculoskeletal: No Pertinent History Female Surgical History: Hysterectomy Other Surgical History: bone spur left hand - Social History Smoking Status: Never smoker How long have you smoked: 40 years Exposure to second hand smoke: Yes Drug Use: none Patient Lives Alone: No - Female History Hx Now: No - Nursing Vital Signs Nursing Vital Signs: Initial Vital Signs Temperature 98.1 F 10/02/17 14:51 Pulse Rate 89 10/02/17 14:51 Respiratory Rate 20 10/02/17 14:51 Blood Pressure 135/87 10/02/17 14:51 O2 Sat by Pulse Oximetry 99 10/02/17 14:51 Pain Scale Pain Intensity 6 - [place] Coma Score Best Eye Response ([place]): (4) open spontaneously Best Verbal Response ([place]): (5) oriented Best Motor Response ([place]): (6) obeys commands [place] Total: 15 - Physical Exam General Appearance: no apparent distress, alert Head Injury: no evidence of injury Eye Exam: PERRL/EOMI ENT Exam: airway nml Neck Exam: normal inspection, No tenderness Respiratory/Chest Exam: normal breath sounds, No chest tenderness, No respiratory distress Cardiovascular Exam: normal heart sounds, regular rate/rhythm Gastrointestinal Exam: soft, No tenderness, No distention, No guarding, No ecchymosis Rectal Exam: not done Back Exam: normal inspection, No vertebral tenderness Extremity Exam: limited range of motion (unlar aspect of left wrist), pain with movement, swelling, tenderness Neurologic Exam: alert, oriented x 3, cooperative, sensation nml, No motor deficits Skin Exam: normal color, warm, dry SpO2 Interpretation: normal SpO2: 99 Oxygen Delivery: Room Air - Radiology Exams Left Wrist X-ray Interpretation: Interpreted by me, No Fracture, Other (healing distal radius fracture.) Ordered Tests: Active Orders 24 hr Category Date Time Status WRIST (MIN 3 VIEWS) Stat Exams 10/02/17 15:58 Taken Medication Summary Discontinued Medications Generic Name Dose Route Start Last Admin Trade Name Crescencioq PRN Reason Stop Dose Admin Ketorolac Tromethamine 60 mg 10/02/17 15:58 10/02/17 16:06 Toradol 30 Mg Injection IM 10/02/17 15:59 60 mg STAT ONE Administration Ketorolac Tromethamine Confirm 10/02/17 16:05 Toradol 30 Mg Injection Administered 10/02/17 16:06 Dose 60 mg .ROUTE .STK-MED ONE - Progress Progress: improved Counseled pt/family regarding: rad results - Departure Time of Disposition: 16:52 Departure Disposition: Home Clinical Impression: Left wrist pain Condition: Stable Critical Care Time: No Referrals: JANES PALACIO [Primary Care Provider] - Additional Instructions: Your left wrist fracture is healing. I do not see any new fractures from your recent fall. You were given Toradol 60 mg by IM in the ER. Use ice as needed and where your splint until the pain subsides. Call your orthopedic surgeon tomorrow for further evaluation.
[2017-10-02] MEDS ORDERED: TORAdol 30 mg Injection IM ONE (15:58)
[2017-10-02] MEDS ORDERED: TORAdol 30 mg Injection ONE (16:05)
[2017-10-02 16:43] VITALS: BP 140/86; PULSE 96
--- NOTE | 2017-10-02 21:03 | XRAY ---
Indication: Pain following fall 2 days ago. Comparison: September 16, 2017. 3 views of the left wrist unchanged again demonstrating nondisplaced healing distal radial fracture. No new bony, articular, or soft tissue abnormalities.
== END 2017-10-02 17:33 | disposition home or self-care (01) ==
LOC: ED 14:50
DX: M25.532 Pain in left wrist (principal); W01.198A Fall on same level from slipping, tripping and stumbling with subsequent striking against other object, initial encounter
CPT/HCPCS: 73110; 96372; 99284; J1885

== ENCOUNTER 2017-12-07 11:57 | Day surgery (SDC) | payer OTHER ==
[2017-12-07] MEDS ORDERED: LIDOCAINE HCL 1% AMPUL 5 ML IJ ONE (11:58)
[2017-12-07] MEDS ORDERED: Decadron 4 MG INJ IV ONE (11:58)
[2017-12-07] MEDS ORDERED: DIPRIVAN 200 MG/20 ML IV ONE (11:58)
[2017-12-07 12:44] LABS: Hematocrit 40.7 % (35-47); Hemoglobin 12.9 gm/dl (12.0-16.0); Mean Cell Volume 88.7 fl (78-100); Mean Corpuscular Hemoglobin 28.1 pg (26-32); Mean Corpuscular Hgb Concent. 31.7 g/dl (32-36); Mean Platelet Volume 9.2 fl (6-9.5); Platelet Count 324 K/mm3 (150-450); Red Blood Count 4.59 M/mm3 (4.1-5.4); Red Cell Distribution Width 13.4 % (11.5-14.0); White Blood Count 6.7 K/mm3 (4.0-10.5)
[2017-12-07 13:01] LABS: PTT 31.4 SECONDS (25.3-37.0)
[2017-12-07 13:02] LABS: INR 0.92 (0.8-3.0)
[2017-12-07] MEDS ORDERED: Lactated Ringers 1,000 ML IV ONE (14:15)
--- NOTE | 2017-12-07 15:36 | XRAY ---
Indication: L5 AMARA. Intraoperative fluoroscopy was provided for 56 seconds. Single digital spot image demonstrates posterior spinal needle tip projecting over the left L5-S1 facet. Small amount of contrast injected for needle tip placement. Correlate with intraoperative findings/report.
--- NOTE | 2017-12-07 17:00 | XRAY ---
56 seconds fluoroscopy time in surgery for L5 AMARA.
--- NOTE | 2017-12-08 11:08 | OP ---
DATE OF PROCEDURE: 12/07/2017 1317 SURGEON: Surinder Mcmahon D.O. PREOPERATIVE DIAGNOSES: Degenerative lumbar spine disease, lumbar radiculopathy, lumbar spondylosis. POSTOPERATIVE DIAGNOSES: Degenerative lumbar spine disease, lumbar radiculopathy , lumbar spondylosis. PROCEDURE PERFORMED: Left L5 epidural steroid injection under fluoroscopic guidance. DESCRIPTION OF PROCEDURE: The patient was taken to the operating room and laid in the prone position on the table. Skin over the injection site was prepped and draped in sterile fashion. Under fluoroscope bony anatomy at the targeted injection site was visualized. Induction agent was given as per anesthesia while vital signs were monitored. Local anesthetic agent was introduced to anesthetize the skin in the subcutaneous tissue through injection site. Under fluoroscopic guidance a #22-gauge standard spinal needle was advanced into the target epidural space. 1 cc of preservative free Decadron was injected into each of the target epidural space. While the needle was being removed normal saline was simultaneously infiltrated to avoid sterile needle tract. Skin was cleansed with alcohol and then a bandage was applied. The preoperative pain level 8 to 9 out of 10 and the postoperative pain level 8 out of 10. No complications or adverse consequences were observed. The patient was returned to the holding area until stabilized before discharge to home. The patient will be followed up within ten days after the injection for reevaluation.
== END 2017-12-07 14:05 | disposition home or self-care (01) ==
LOC: SDC-PAIN 11:57
PROVIDERS: ATTEND Internal Medicine
DX: M54.16 Radiculopathy, lumbar region (principal); M54.5 Low back pain; M46.96 Unspecified inflammatory spondylopathy, lumbar region; M51.36 Other intervertebral disc degeneration, lumbar region; M62.838 Other muscle spasm; Z79.891 Long term (current) use of opiate analgesic
CPT/HCPCS: 36415; 64483; 72020; 77003; 85027; 85610; 85730; J1100; J2704; Q9967

== ENCOUNTER 2018-04-01 16:07 | Emergency (ER) | payer OTHER ==
[2018-04-01 16:35] VITALS: BP 124/83; PULSE 91; O2SAT 97
--- NOTE | 2018-04-01 16:42 | ERPHSYRPT ---
- History of Present Illness Time Seen by Provider: 04/01/18 16:25 Source: patient Exam Limitations: no limitations Patient Subjective Stated Complaint: bug bites to arms, legs, neck ,face x 1 week Making her crazy Triage Nursing Assessment: noted multiple bug bites to arms, legs neck and face. extreme itching.,.states has animals but they are outside. no one else in the home has these bites. no respiratory difficulty Physician History: 57 y/o female comes to the ER with complaints of diffuse rash and itching for the past 6 days. Pt has had exposure to her grandchildren but no outside travel history, sleeping in a hotel or has been sexually active. Pt has been using steroid cream and benadryl with no relief. Pt admits to having the rash starting on the arms and wrists but has spread over the last few days. Pt does admit that the itching is worse at night. Timing/Duration: day(s) Quality: itchy Severity: severe Location: generalized Possible Causes: no cause identified Associated Symptoms: rash Allergies/Adverse Reactions: betamethasone sodium phosphate [From CelBlue Nile] Allergy (Mild, Verified 15:24) "pt states blew a muscle in my back with it" Home Medications: Aspirin [Aspirin EC] 81 mg PO DAILY 04/03/17 [History] Carvedilol 3.125 mg [Coreg 3.125 MG] 3.125 mg PO BID 04/03/17 [History] Clopidogrel Bisulfate 75 mg [PLAVIX 75 MG Tablet] 75 mg PO DAILY 04/03/17 [History] Atorvastatin Calcium 10 mg PO DAILY 04/22/17 [History] PANTOPRAZOLE 40 mg Tablet [Protonix 40MG Tablet] 40 mg PO DAILY 08/24/17 [ History] Gabapentin [Neurontin] 300 - 900 mg PO TID 10/31/17 [History] Tizanidine HCl 4 mg [Zanaflex 4 MG] 4 mg PO TID 10/31/17 [History] Hydrocodone/Acetaminophen [[place] 5-325 Tablet] 1 each PO BID 12/07/17 [History] Modafinil 100 mg [Provigil 100MG Tablet] 200 mg PO QAM 12/07/17 [History] Hx Tetanus, Diphtheria Vaccination/Date Given: Yes Hx Influenza Vaccination/Date Given: No Hx Pneumococcal Vaccination/Date Given: No Immunizations Up to Date: (unknown) - Review of Systems Constitutional: No Fever, No Chills Eyes: No Symptoms Ears, Nose, & Throat: No Symptoms Respiratory: No Cough, No Dyspnea Cardiac: No Chest Pain, No Edema, No Syncope Abdominal/Gastrointestinal: No Abdominal Pain, No Nausea, No Vomiting, No Diarrhea Genitourinary Symptoms: No Dysuria Musculoskeletal: No Back Pain, No Neck Pain Skin: Pruritis, Rash, Skin Lesions Neurological: No Dizziness, No Focal Weakness, No Sensory Changes Psychological: No Symptoms Endocrine: No Symptoms All Other Systems: Reviewed and Negative - Past Medical History Pertinent Past Medical History: Yes Neurological History: No Pertinent History ENT History: No Pertinent History Cardiac History: Angina, High Cholesterol, Hypertension, Myocardial Infarction ( [place]) Respiratory History: Asthma, Bronchitis, COPD Endocrine Medical History: No Pertinent History Musculoskeletal History: Arthritis, Degenerative Disk Disease GI Medical History: Irritable Bowel, Pancreatitis History: No Pertinent History Psycho-Social History: No Pertinent History Female Reproductive Disorders: No Pertinent History Other Medical History: [place], uterine cancer - Past Surgical History Past Surgical History: Yes Neuro Surgical History: No Pertinent History Cardiac: Cardiac Catheterization Respiratory: No Pertinent History Gastrointestinal: Cholecystectomy Genitourinary: No Pertinent History Musculoskeletal: No Pertinent History Female Surgical History: Hysterectomy Other Surgical History: bone spur left hand - Social History Smoking Status: Current every day smoker How long have you smoked: 40 years Exposure to second hand smoke: No Drug Use: none Patient Lives Alone: No - Female History Hx Now: No - Nursing Vital Signs Nursing Vital Signs: Initial Vital Signs Temperature 98.5 F 04/01/18 16:19 Pulse Rate 91 H 04/01/18 16:19 Respiratory Rate 18 04/01/18 16:19 Blood Pressure 124/83 04/01/18 16:19 O2 Sat by Pulse Oximetry 97 04/01/18 16:19 Pain Scale Pain Intensity 0 - Physical Exam General Appearance: no apparent distress, alert Eye Exam: PERRL/EOMI, eyes nml inspection Ears, Nose, Throat Exam: normal ENT inspection, pharynx normal, moist mucous membranes Neck Exam: normal inspection, non-tender, supple, full range of motion Respiratory Exam: normal breath sounds, lungs clear, No respiratory distress Cardiovascular Exam: regular rate/rhythm, normal heart sounds Gastrointestinal/Abdomen Exam: soft, mass, No tenderness Back Exam: normal inspection, normal range of motion, No CVA tenderness, No vertebral tenderness Extremity Exam: normal inspection, normal range of motion Neurologic Exam: alert, oriented x 3, cooperative, normal mood/affect, sensation nml, No motor deficits Skin Exam: warm, dry, rash, other (burrows in webs of hands, papular lesions throughout UE and LE) SpO2: 97 Oxygen Delivery: Room Air - Course Nursing assessment & vital signs reviewed: Yes - Progress Progress: unchanged Progress Note: 04/01/18 16:41 Pt has a clinical diagnosis of scabies and will be started on permethrin 5% and will continue on benadryl. - Departure Time of Disposition: 16:42 Departure Disposition: Home Clinical Impression: Scabies Condition: Stable Critical Care Time: No Referrals: JANES PALACIO [Primary Care Provider] - Instructions: Scabies (DC) Additional Instructions: Apply the Permethrin Cream 5% as directed: Place the cream from neck all the way down to the feet overnight for 10 hours. Use benadryl every 4-6 hrs as needed for itching. Return to the ER next week if the rash has not subsided. Prescriptions: Diphenhydramine HCl [Benadryl] 25 mg PO QID PRN #20 capsule PRN Reason: Itching Diphenhydramine HCl [Benadryl] 25 mg PO QID PRN #20 capsule PRN Reason: Itching Permethrin Cream [Elimite CREAM] 60 gm TP AC #1 tube Permethrin Cream [Elimite CREAM] 60 gm TP AC #1 tube
== END 2018-04-01 16:50 | disposition home or self-care (01) ==
LOC: ED 16:07
DX: B86 Scabies (principal); Z79.899 Other long term (current) drug therapy; Z79.01 Long term (current) use of anticoagulants
CPT/HCPCS: 99283

== ENCOUNTER 2018-12-20 10:48 | Day surgery (SDC) | payer OTHER ==
[2018-12-20] MEDS ORDERED: Depo-Medrol 40 MG/ML IM ONE (10:49)
[2018-12-20] MEDS ORDERED: Sodium Chloride 0.9(Preservative Free) 10 ML IJ ONE (10:49)
[2018-12-20] MEDS ORDERED: DIPRIVAN 200 MG/20 ML IV ONE (10:49)
[2018-12-20] MEDS ORDERED: Lactated Ringers 1,000 ML IV ONE (12:45)
--- NOTE | 2018-12-20 13:20 | XRAY ---
16 seconds fluoroscopy time in surgery for left L4-S1 AMARA.
--- NOTE | 2018-12-20 13:21 | XRAY ---
Indication: Left L4-S1 AMARA. Intraoperative fluoroscopy was provided for 16 seconds. Single digital spot images submitted for interpretation demonstrates posterior needle tips projecting over the expected course of the left L4-L5 nerve roots. Small amount of contrast injected for needle tip placement. Correlate with intraoperative findings/report.
[2018-12-20] MEDS ORDERED: Ketamine HCl 50 MG/ML IJ ONE (15:16)
== END 2018-12-20 12:32 | disposition home or self-care (01) ==
LOC: SDC-PAIN 10:48
PROVIDERS: ATTEND Psychiatry & Neurology Pain Medicine
DX: M54.16 Radiculopathy, lumbar region (principal); J44.9 Chronic obstructive pulmonary disease, unspecified; I10 Essential (primary) hypertension; E78.00 Pure hypercholesterolemia, unspecified; Z79.899 Other long term (current) drug therapy; E78.5 Hyperlipidemia, unspecified
CPT/HCPCS: 64483; 64484; 72020; 77003; J1030; J2704; Q9966

== ENCOUNTER 2019-01-17 13:42 | Day surgery (SDC) | payer OTHER ==
[2019-01-17] MEDS ORDERED: Xylocaine 1% Vial 30 ML PF IJ ONE (13:43)
[2019-01-17] MEDS ORDERED: Sodium Chloride 0.9(Preservative Free) 10 ML IJ ONE (13:43)
[2019-01-17] MEDS ORDERED: Depo-Medrol 40 MG/ML IM ONE (13:43)
[2019-01-17] MEDS ORDERED: DIPRIVAN 200 MG/20 ML IV ONE (13:43)
--- NOTE | 2019-01-17 16:26 | XRAY ---
18 seconds fluoroscopy time in surgery for lumbar AMARA.
--- NOTE | 2019-01-17 16:28 | XRAY ---
Indication: Lumbar AMARA. Intraoperative fluoroscopy was provided for 18 seconds. 2 digital spot images submitted for interpretation demonstrates midline posterior needle tip projecting just posterior to the lumbosacral interspace. Small amount of contrast injected for needle tip placement. Correlate with intraoperative findings/report.
[2019-01-17] MEDS ORDERED: Lactated Ringers 1,000 ML IV ONE (17:05)
== END 2019-01-17 16:25 | disposition home or self-care (01) ==
LOC: SDC-PAIN 13:42
PROVIDERS: ATTEND Psychiatry & Neurology Pain Medicine
DX: M54.16 Radiculopathy, lumbar region (principal); J44.9 Chronic obstructive pulmonary disease, unspecified; E78.00 Pure hypercholesterolemia, unspecified; I10 Essential (primary) hypertension; M19.90 Unspecified osteoarthritis, unspecified site; K86.1 Other chronic pancreatitis; K29.70 Gastritis, unspecified, without bleeding; E78.5 Hyperlipidemia, unspecified; K44.9 Diaphragmatic hernia without obstruction or gangrene
CPT/HCPCS: 72020; 77003; J1030; J2001; J2704

== ENCOUNTER 2019-02-21 19:52 | Emergency (ER) | payer OTHER ==
[2019-02-21 20:16] VITALS: BP 124/86; PULSE 98; O2SAT 97
[2019-02-21] MEDS ORDERED: Adacel Vial IM ONE ×2 (20:17→20:27)
[2019-02-21] MEDS ORDERED: KEFLEX 250 MG/5 ML SUSP PO ONE (20:17)
--- NOTE | 2019-02-21 20:23 | ERPHSYRPT ---
- History of Present Illness Time Seen by Provider: 02/21/19 20:18 Source: patient Exam Limitations: no limitations Patient Subjective Stated Complaint: pt states, "I have a thorn under my fingernail. I've tried to get it out and I can't. I've soaked it in peroxide, baking soda soak and used drawing salve on it". Triage Nursing Assessment: pt ambulated to rm 9 in er, alert and oriented. Pt has a thorn under her rt hand ring finger since 1pm yesterday. Pt c/o it aching , states, "I've tried to get it out but I can't". Physician History: This is a 58-year-old white female she arrives with complaint of a splinter from a blackberry plan underneath her right fourth finger nail symptoms since yesterday. She states she tried to clip the fingernail back she still cannot reach his the small splinter. She is having pain over the distal right fourth finger. She denies any other complaints Past medical history includes angina, hyperlipidemia, high blood pressure, my, asthma, bronchitis, COPD, arthritis, degenerative disc disease, irritable bowel , urine cancer Past surgical history includes cardiac catheter, hysterectomy, surgery on her left hand Occurred: yesterday Method of Injury: other (small blackberry thorn under right fourth fingernail) Severity of Pain-Current: mild Extremities Pain Location: 4th finger: right Modifying Factors: Improves With: nothing Associated Symptoms: none Allergies/Adverse Reactions: betamethasone sodium phosphate [From Celestone] Allergy (Mild, Verified 15:24) "pt states blew a muscle in my back with it" morphine Adverse Reaction (Intermediate, Verified 02/21/19 19:58) vomiting, headache ondansetron [From Zofran] Adverse Reaction (Verified 02/21/19 19:57) vomiting, headache Home Medications: Aspirin [Aspirin EC] 81 mg PO DAILY 04/03/17 [History] Carvedilol 3.125 mg [Coreg 3.125 MG] 3.125 mg PO BID 04/03/17 [History] Clopidogrel Bisulfate 75 mg [PLAVIX 75 MG Tablet] 75 mg PO DAILY 04/03/17 [History] Atorvastatin Calcium 10 mg PO DAILY 04/22/17 [History] PANTOPRAZOLE 40 mg Tablet [Protonix 40MG Tablet] 40 mg PO DAILY 08/24/17 [ History] Hydrocodone/Acetaminophen [[place] 5-325 Tablet] 1 each PO BID 12/07/17 [History] Modafinil 100 mg [Provigil 100MG Tablet] 200 mg PO QAM 12/07/17 [History] Hx Tetanus, Diphtheria Vaccination/Date Given: Yes Hx Influenza Vaccination/Date Given: Yes Hx Pneumococcal Vaccination/Date Given: No Immunizations Up to Date: Yes - Review of Systems Constitutional: No Fever, No Chills Eyes: No Symptoms Ears, Nose, & Throat: No Symptoms Respiratory: No Cough, No Dyspnea Cardiac: No Chest Pain, No Edema, No Syncope Abdominal/Gastrointestinal: No Abdominal Pain, No Nausea, No Vomiting, No Diarrhea Genitourinary Symptoms: No Dysuria Musculoskeletal: Other (small blackberry thorn on the right fourth fingernail) Skin: No Rash Neurological: No Dizziness, No Focal Weakness, No Sensory Changes Psychological: No Symptoms Endocrine: No Symptoms All Other Systems: Reviewed and Negative - Past Medical History Pertinent Past Medical History: Yes Neurological History: Migraines ENT History: No Pertinent History Cardiac History: Angina, Coronary Artery Disease, High Cholesterol, Hypertension , Myocardial Infarction ([place]) Respiratory History: Asthma, Bronchitis, COPD Endocrine Medical History: No Pertinent History Musculoskeletal History: Arthritis, Degenerative Disk Disease GI Medical History: GERD, Hernia, Irritable Bowel, Pancreatitis History: No Pertinent History Psycho-Social History: No Pertinent History Female Reproductive Disorders: Cervical Cancer Other Medical History: [place], uterine cancer - Past Surgical History Past Surgical History: Yes Neuro Surgical History: No Pertinent History Cardiac: Cardiac Catheterization Respiratory: No Pertinent History Gastrointestinal: Cholecystectomy Genitourinary: No Pertinent History Musculoskeletal: Orthopedic Surgery, Other Female Surgical History: Hysterectomy Other Surgical History: bone spur left hand, fractured pelvis, lt fractured wrist - Social History Smoking Status: Current every day smoker How long have you smoked: 42 yrs Exposure to second hand smoke: No Drug Use: none Patient Lives Alone: No - Female History Hx Now: No - Nursing Vital Signs Nursing Vital Signs: Initial Vital Signs Temperature 98.1 F 02/21/19 19:52 Pulse Rate 98 H 02/21/19 19:52 Respiratory Rate 16 02/21/19 19:52 Blood Pressure 124/86 02/21/19 19:52 O2 Sat by Pulse Oximetry 97 02/21/19 19:52 Pain Scale Pain Intensity 4 - Physical Exam General Appearance: mild distress, alert Eyes, Ears, Nose, Throat Exam: moist mucous membranes Neck Exam: non-tender, supple Cardiovascular/Respiratory Exam: chest non-tender, normal breath sounds, regular rate/rhythm, no respiratory distress Abdominal Exam: non-tender, No guarding Back Exam: normal inspection, No vertebral tenderness Shoulder Exam: normal inspection, non-tender, no evidence of injury, normal ROM Elbow/Forearm Exam: normal inspection, non-tender, no evidence of injury, normal ROM Wrist Exam: normal inspection, non-tender, no evidence of injury, normal ROM Hand Exam: No normal inspection (very small blackberry thorn underlying distal right fourth fingernail) Neuro/Tendon Exam: normal sensation, normal motor functions Mental Status Exam: alert (there, and), oriented x 3, cooperative Skin Exam: normal color, warm, dry SpO2 Interpretation: normal (97%) SpO2: 97 - Course Nursing assessment & vital signs reviewed: Yes Ordered Tests: Medication Summary Discontinued Medications Generic Name Dose Route Start Last Admin Trade Name Crescencioq PRN Reason Stop Dose Admin Cephalexin HCl 500 mg 02/21/19 20:17 02/21/19 20:37 Keflex 250 Mg/5 Ml Susp PO 02/21/19 20:18 500 mg STAT ONE Administration Cephalexin HCl Confirm 02/21/19 20:26 Keflex 250 Mg/5 Ml Susp Administered 02/21/19 20:27 Dose 5,000 mg .ROUTE .STK-MED ONE Diphtheria/Tetanus/Acell Pertussis 0.5 ml 02/21/19 20:17 02/21/19 20:38 Adacel Vial IM 02/21/19 20:18 0.5 ml .ONCE ONE Administration Diphtheria/Tetanus/Acell Pertussis Confirm 02/21/19 20:27 Adacel Vial Administered 02/21/19 20:28 Dose 0.5 ml IM .STK-MED ONE - Progress Progress: improved Progress Note: 02/21/19 20:21 This is a 58-year-old white female she arrives with complaint that she has a small blackberry thorn underlying her right fourth fingernail. She is clipped the fingernail back she has a very thin small thorn underlying her right fourth fingernail. This is in a position where do not believe he'll be able to remove this at this time. Will go ahead and place patient on Keflex 500 mg orally every 4 hours x7 days patient is to take her [place] as prescribed by her family . Will update her tetanus. Patient to followup with her family . - Departure Departure Disposition: Home Clinical Impression: Subungual foreign body of finger Qualifiers: Encounter type: initial encounter Qualified Code(s): S60.459A - Superficial foreign body of unspecified finger, initial encounter Condition: Good Critical Care Time: No Referrals: JANES PALACIO [Primary Care Provider] - Instructions: Foreign Body in Skin (DC) Additional Instructions: Return home. Keflex as prescribed. Plano as prescribed by your family . Followup with your family . Return for acute distress or for severe symptoms. Prescriptions: Cephalexin Mh 500 mg [Keflex 500 mg] 500 mg PO Q6H #28 capsule
[2019-02-21] MEDS ORDERED: KEFLEX 250 MG/5 ML SUSP ONE (20:26)
== END 2019-02-21 20:45 | disposition home or self-care (01) ==
LOC: ED 19:52
DX: S60.454A Superficial foreign body of right ring finger, initial encounter (principal); E78.5 Hyperlipidemia, unspecified; J44.9 Chronic obstructive pulmonary disease, unspecified; J45.909 Unspecified asthma, uncomplicated; M19.90 Unspecified osteoarthritis, unspecified site; Z79.899 Other long term (current) drug therapy; Z85.42 Personal history of malignant neoplasm of other parts of uterus
CPT/HCPCS: 90471; 90715; 99283; A9270-GY

== ENCOUNTER 2019-02-28 10:49 | Day surgery (SDC) | payer OTHER ==
[2019-02-28] MEDS ORDERED: Marcaine 0.5% SDV 10 ML IJ ONE (10:50)
[2019-02-28] MEDS ORDERED: Depo-Medrol 40 MG/ML IM ONE (10:50)
[2019-02-28] MEDS ORDERED: Ketamine HCl 50 MG/ML ONE (11:54)
[2019-02-28] MEDS ORDERED: DIPRIVAN 200 MG/20 ML IV ONE (11:54)
--- NOTE | 2019-02-28 14:18 | XRAY ---
Indication: Bilateral SI joint injection. Intraoperative fluoroscopy was provided for 15 seconds. 3 digital spot images submitted for interpretation demonstrates posterior needle tip projecting over the inferior left SI joint. A second lateral digital spot image also demonstrates posterior needle tip presumed in the inferior right SI joint. Correlate with intraoperative findings/report.
[2019-02-28] MEDS ORDERED: Lactated Ringers 1,000 ML IV ONE (15:54)
--- NOTE | 2019-03-01 16:19 | XRAY ---
15 seconds fluoroscopy time in surgery for bilateral SI joint injections.
== END 2019-02-28 12:30 | disposition home or self-care (01) ==
LOC: SDC-PAIN 10:49
PROVIDERS: ATTEND Psychiatry & Neurology Pain Medicine
DX: M46.1 Sacroiliitis, not elsewhere classified (principal); J44.9 Chronic obstructive pulmonary disease, unspecified; E78.00 Pure hypercholesterolemia, unspecified; I10 Essential (primary) hypertension; K86.1 Other chronic pancreatitis; K29.70 Gastritis, unspecified, without bleeding; K44.9 Diaphragmatic hernia without obstruction or gangrene; E78.5 Hyperlipidemia, unspecified; G47.419 Narcolepsy without cataplexy
CPT/HCPCS: 72202; 77002; J1030; J2704

== ENCOUNTER 2020-08-11 16:06 | Emergency (ER) | payer MEDICARE ==
--- NOTE | 2020-08-11 17:08 | ERPHSYRPT ---
- History of Present Illness Source: patient Exam Limitations: no limitations Patient Subjective Stated Complaint: arthritic L wrist pain Triage Nursing Assessment: pt to ED c/o L wrist pain r/t arthritis. pt states today she heard a pop while washing dishes and pain has been significantly increased since. rates 7/10. limited ROM r/t pain. faint grinding heard when moving thumb. pt does have hx arthritis and takes medication. meds taken today but no relief of pain. denies any injury or new trauam to area. Physician History: Pain at base of L 1st digit x3wks which is worse today. Pt is R handed and denies other/previous injuries.Pain is rated 7/10. Occurred: other (3 wks) Method of Injury: unknown Quality: constant Severity of Pain-Max: moderate Severity of Pain-Current: moderate Extremities Pain Location: thumb: left Modifying Factors: Improves With: movement Associated Symptoms: none Allergies/Adverse Reactions: betamethasone sodium phosphate [From Celestone] Allergy (Mild, Verified 08/11/20 16:19) "pt states blew a muscle in my back with it" morphine Adverse Reaction (Intermediate, Verified 08/11/20 16:19) vomiting, headache ondansetron [From Zofran] Adverse Reaction (Verified 08/11/20 16:19) vomiting, headache Home Medications: Aspirin [Aspirin EC] 81 mg PO DAILY 04/03/17 [History] Carvedilol 3.125 mg [Coreg 3.125 MG] 3.125 mg PO BID 04/03/17 [History] Clopidogrel Bisulfate 75 mg [PLAVIX 75 MG Tablet] 75 mg PO DAILY 04/03/17 [History] Atorvastatin Calcium 10 mg PO DAILY 04/22/17 [History] PANTOPRAZOLE 40 mg Tablet [Protonix 40MG Tablet] 40 mg PO DAILY 08/24/17 [History] Hydrocodone/Acetaminophen [[place]ab[place] 5-325 Tablet] 1 each PO BID 12/07/17 [History] Amphet Asp/Amphet/D-Amphet [Adderall Xr 30 mg Capsule] 30 mg PO BID 08/11/20 [History] Cyclobenzaprine HCl [Flexeril] 5 mg PO TID 08/11/20 [History] Duloxetine HCl 30 mg [Cymbalta 30 MG Capsule] 30 mg PO BID 08/11/20 [History] Hx Tetanus, Diphtheria Vaccination/Date Given: Yes Hx Influenza Vaccination/Date Given: Yes Hx Pneumococcal Vaccination/Date Given: No Immunizations Up to Date: Yes Travel Risk - International Travel Have you traveled outside of the country in past 3 weeks: No - Coronavirus Screening Are you exhibiting any of the following symptoms?: No Close contact with a COVID-19 positive Pt in past 14-21 Days: No - Review of Systems Constitutional: No Symptoms Eyes: No Symptoms Ears, Nose, & Throat: No Symptoms Respiratory: No Symptoms Cardiac: No Symptoms Abdominal/Gastrointestinal: No Symptoms Genitourinary Symptoms: No Symptoms Skin: No Symptoms Neurological: No Symptoms Psychological: No Symptoms Endocrine: No Symptoms Hematologic/Lymphatic: No Symptoms Immunological/Allergic: No Symptoms - Past Medical History Pertinent Past Medical History: Yes Neurological History: Migraines, Peripheral Neuropathy, Other ENT History: No Pertinent History Cardiac History: Hypertension, Myocardial Infarction ([place]), Other Respiratory History: Asthma Endocrine Medical History: Other Musculoskeletal History: Osteoarthritis, Rheumatoid Arthritis GI Medical History: GERD, Hernia, Irritable Bowel, Pancreatitis History: No Pertinent History Psycho-Social History: No Pertinent History Female Reproductive Disorders: Cervical Cancer Other Medical History: headaches, 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 R foot drop at times. History of pelvis fracture and L wrist fracture in Aug-Sep due to a fall on ice. - Past Surgical History Past Surgical History: Yes Neuro Surgical History: No Pertinent History Cardiac: Cardiac Catheterization Respiratory: No Pertinent History Gastrointestinal: Cholecystectomy Genitourinary: No Pertinent History Musculoskeletal: Orthopedic Surgery, Other Female Surgical History: Hysterectomy Other Surgical History: bone spur left hand, fractured pelvis, lt fractured wrist - Social History Smoking Status: Light tobacco smoker How long have you smoked: 42 yrs Exposure to second hand smoke: No Drug Use: none Patient Lives Alone: Yes Significant Family History: no pertinent family hx - Female History Hx Now: No - Nursing Vital Signs Nursing Vital Signs: Initial Vital Signs Temperature 98.6 F 08/11/20 16:12 Pulse Rate 89 08/11/20 16:12 Respiratory Rate 18 08/11/20 16:12 Blood Pressure 160/81 08/11/20 16:12 O2 Sat by Pulse Oximetry 99 08/11/20 16:12 Pain Scale Pain Intensity 5 - Physical Exam General Appearance: no apparent distress Eyes, Ears, Nose, Throat Exam: normal ENT inspection Neck Exam: normal inspection, non-tender, full range of motion, No Brudzinski, No Kernig's, No meningismus Cardiovascular/Respiratory Exam: normal breath sounds, regular rate/rhythm, heart sounds normal Abdominal Exam: non-tender, soft Back Exam: normal inspection Shoulder Exam: normal inspection Elbow/Forearm Exam: normal inspection Wrist Exam: normal inspection Hand Exam: bone tenderness (TTP base L 1st digit/No deformity/Good distal capillary return and sensation) DTR - Upper Extremity Exam: bicep (R): 2+, bicep (L): 2+ Neuro/Tendon Exam: normal sensation, normal motor functions, normal tendon functions, responds to pain, no evidence tendon injury Mental Status Exam: alert, oriented x 3, cooperative Skin Exam: normal color, warm, dry SpO2 Interpretation: normal SpO2: 99 O2 Delivery: Room Air - Course Nursing assessment & vital signs reviewed: Yes - Radiology Exams Hand X-ray Interpretation: Interpreted by me (No fx or dislocation) Ordered Tests: Active Orders 24 hr Category Date Time Status HAND (MINIMUM 3 VIEWS) Stat Exams 08/11/20 17:13 Taken Medication Summary Discontinued Medications Generic Name Dose Route Start Last Admin Trade Name Lisa PRMaite Reason Stop Dose Admin Dexamethasone 10 mg 08/11/20 18:01 08/11/20 18:22 Decadron 4 Mg PO 08/11/20 18:02 10 mg ONCE STA Administration Dexamethasone Sodium Phosphate Confirm 08/11/20 18:05 Decadron 10mg Inj. Administered 08/11/20 18:06 Dose 10 mg .ROUTE .STK-MED ONE Ketorolac Tromethamine 60 mg 08/11/20 18:00 08/11/20 18:06 Toradol 30 Mg Injection IM 08/11/20 18:01 60 mg STAT ONE Administration Ketorolac Tromethamine Confirm 08/11/20 18:05 Toradol 30 Mg Injection Administered 08/11/20 18:06 Dose 60 mg .ROUTE .STK-MED ONE - Progress Progress: improved Progress Note: 08/11/20 18:03 60mg IM Toradol/10mg po Decadron Counseled pt/family regarding: need for follow-up, rad results - Departure Departure Disposition: Home Clinical Impression: Tendonitis Condition: Stable Critical Care Time: No Referrals: JANES PALACIO [Primary Care Provider] - Instructions: Tendonitis (DC) Additional Instructions: Continue with home pain meds Follow up with your orthopedic surgeon Return to ER for increasing pain/swelling/redness
[2020-08-11] MEDS ORDERED: TORAdol 30 mg Injection IM ONE (18:00)
[2020-08-11] MEDS ORDERED: Decadron 4 MG PO STA (18:01)
[2020-08-11] MEDS ORDERED: DECADRON 10MG INJ. ONE (18:05)
[2020-08-11] MEDS ORDERED: TORAdol 30 mg Injection ONE (18:05)
[2020-08-11 18:27] VITALS: BP 130/80; PULSE 79
[2020-08-11 20:37] VITALS: O2SAT 99
--- NOTE | 2020-08-12 08:46 | XRAY ---
Indication: 5th finger pain. Comparison: None 3 view left hand demonstrates minimal degenerative changes 1st metacarpal multangular articulation. No other bony, articular, or soft tissue abnormalities.
== END 2020-08-11 18:29 | disposition home or self-care (01) ==
LOC: ED 16:06
DX: M77.8 Other enthesopathies, not elsewhere classified (principal); M25.532 Pain in left wrist; Z79.899 Other long term (current) drug therapy; Z79.01 Long term (current) use of anticoagulants; I10 Essential (primary) hypertension; Z85.41 Personal history of malignant neoplasm of cervix uteri
CPT/HCPCS: 73130; 96372; 99284; J1100; J1885; A9270-GY

== ENCOUNTER 2021-04-01 10:57 | Day surgery (SDC) | payer MEDICARE ==
[2021-04-01] MEDS ORDERED: Depo-Medrol 40 MG/ML IM ONE (10:58)
[2021-04-01] MEDS ORDERED: Sodium Chloride 0.9(Preservative Free) 10 ML IJ ONE (10:58)
[2021-04-01] MEDS ORDERED: DIPRIVAN 200 MG/20 ML IV ONE (12:18)
--- NOTE | 2021-04-01 13:32 | XRAY ---
Indication: Right L4-L5 transforaminal AMARA. Intraoperative fluoroscopy provided for 18 seconds. 3 digital spot image submitted for interpretation demonstrates posterior needle tips projecting over the expected right L4 and L5 nerve roots. Small amount of contrast injected for needle tip placement. Correlate with intraoperative findings/report.
--- NOTE | 2021-04-01 13:34 | XRAY ---
18 seconds of fluoroscopy was used in surgery for a right L4-S1 transforaminal AMARA.
[2021-04-01] MEDS ORDERED: Lactated Ringers 1,000 ML IV ONE (14:05)
== END 2021-04-01 12:39 | disposition home or self-care (01) ==
LOC: SDC-PAIN 10:57
PROVIDERS: ATTEND Psychiatry & Neurology Pain Medicine
DX: M54.16 Radiculopathy, lumbar region (principal); Z79.899 Other long term (current) drug therapy
CPT/HCPCS: 64483; 64484; 72100; 77003; J1030; J2704; Q9966

== ENCOUNTER 2021-06-10 14:28 | Day surgery (SDC) | payer MEDICARE ==
[2021-06-10] MEDS ORDERED: Depo-Medrol 40 MG/ML IM ONE (14:29)
[2021-06-10] MEDS ORDERED: Sodium Chloride 0.9% 10 ML FLUSH Syringe IJ ONE (14:29)
[2021-06-10] MEDS ORDERED: Xylocaine 1% Vial 30 ML PF IJ ONE (14:29)
[2021-06-10] MEDS ORDERED: Lactated Ringers 1,000 ML IV ONE (16:06)
[2021-06-10] MEDS ORDERED: DIPRIVAN 200 MG/20 ML IV ONE (16:47)
--- NOTE | 2021-06-10 19:55 | XRAY ---
Indication: Caudal AMARA. Intraoperative fluoroscopy provided for 19 seconds. 2 digital spot image submitted for interpretation demonstrates posterior caudal needle tip projecting over the mid sacrum. Small amount of contrast injected for needle tip placement. Correlate with intraoperative findings/report.
--- NOTE | 2021-06-11 09:07 | XRAY ---
19 seconds fluoroscopy time in surgery for caudal AMARA.
== END 2021-06-10 17:15 | disposition home or self-care (01) ==
LOC: SDC-PAIN 14:28
PROVIDERS: ATTEND Psychiatry & Neurology Pain Medicine
DX: M54.16 Radiculopathy, lumbar region (principal); Z79.899 Other long term (current) drug therapy
CPT/HCPCS: 62323; 72100; 77002; J1030; J2001; J2704; Q9966

== ENCOUNTER 2021-08-12 09:00 | Day surgery (SDC) | payer MEDICARE ==
[2021-08-12] MEDS ORDERED: Sodium Chloride 0.9% 10 ML FLUSH Syringe IJ ONE (09:01)
[2021-08-12] MEDS ORDERED: Depo-Medrol 40 MG/ML IM ONE (09:01)
[2021-08-12] MEDS ORDERED: DIPRIVAN 200 MG/20 ML IV ONE (10:53)
[2021-08-12] MEDS ORDERED: Lactated Ringers 1,000 ML IV ONE (11:04)
--- NOTE | 2021-08-12 13:09 | XRAY ---
Indication: Caudal AMARA. Intraoperative fluoroscopy provided for 18 seconds. 2 digital spot image submitted for interpretation demonstrates caudal needle tip projecting mid sacrum. Small amount of contrast injected for needle tip placement. Correlate with intraoperative findings/report.
--- NOTE | 2021-08-12 13:17 | XRAY ---
18 seconds of fluoroscopy was used in surgery for a caudal AMARA.
== END 2021-08-12 11:20 | disposition home or self-care (01) ==
LOC: SDC-PAIN 09:00
PROVIDERS: ATTEND Psychiatry & Neurology Pain Medicine
DX: M54.16 Radiculopathy, lumbar region (principal); I10 Essential (primary) hypertension; E78.5 Hyperlipidemia, unspecified; Z79.899 Other long term (current) drug therapy
CPT/HCPCS: 62323; 72020; 77003; J1030; J2704; Q9966

== ENCOUNTER 2022-02-17 14:44 | Day surgery (SDC) | payer MEDICARE ==
[2022-02-17] MEDS ORDERED: Decadron 4 MG INJ IV ONE (14:45)
[2022-02-17] MEDS ORDERED: Sodium Chloride 0.9(Preservative Free) 10 ML IJ ONE (14:45)
[2022-02-17] MEDS ORDERED: XYLOCAINE-MPF 1% 5ML SDV IJ ONE (14:45)
[2022-02-17] MEDS ORDERED: Lactated Ringers 1,000 ML IV ONE (17:17)
--- NOTE | 2022-02-17 20:11 | XRAY ---
Indication: Cervical AMARA. Intraoperative fluoroscopy provided for 16 seconds. 2 digital spot images submitted for interpretation demonstrates midline posterior needle tip projecting just posterior to cervical thoracic junction. Small amount of contrast injected for needle tip placement. Correlate with intraoperative findings/report.
--- NOTE | 2022-02-18 08:46 | XRAY ---
16 seconds of fluoroscopy was used in surgery for a cervical AMARA.
== END 2022-02-17 17:25 | disposition home or self-care (01) ==
LOC: SDC-PAIN 14:44
PROVIDERS: ATTEND Psychiatry & Neurology Pain Medicine
DX: M54.12 Radiculopathy, cervical region (principal); Z79.899 Other long term (current) drug therapy
CPT/HCPCS: 62321; 72040; 77003; J1100; Q9966

== ENCOUNTER 2022-03-31 13:00 | Day surgery (SDC) | payer MEDICARE ==
[2022-03-31] MEDS ORDERED: Marcaine Mpf 0.5% Vial 30 Ml IJ ONE (13:01)
[2022-03-31] MEDS ORDERED: Depo-Medrol 40 MG/ML IM ONE (13:01)
[2022-03-31] MEDS ORDERED: DIPRIVAN 200 MG/20 ML IV ONE (14:03)
[2022-03-31] MEDS ORDERED: Lactated Ringers 1,000 ML IV ONE (15:32)
--- NOTE | 2022-03-31 17:29 | XRAY ---
Indication: Bilateral SI joint injection. Intraoperative fluoroscopy provided for 15 seconds. 4 digital spot image submitted for interpretation demonstrates posterior needle tip projecting over the left and right SI joints. Correlate with intraoperative findings/report.
--- NOTE | 2022-03-31 17:47 | XRAY ---
15 seconds of fluoroscopy was used in surgery for bilateral SI joint injections.
== END 2022-03-31 14:30 | disposition home or self-care (01) ==
LOC: SDC-PAIN 13:00
PROVIDERS: ATTEND Psychiatry & Neurology Pain Medicine
DX: M46.1 Sacroiliitis, not elsewhere classified (principal); Z79.899 Other long term (current) drug therapy
CPT/HCPCS: 27096; 72202; 77002; G0260; J1030; J2704

== ENCOUNTER 2022-05-17 05:52 | Day surgery (SDC) | payer MEDICARE ==
[2022-05-17] MEDS ORDERED: Lactated Ringers 1,000 ML IV SCH (06:30)
[2022-05-17] MEDS ORDERED: DIPRIVAN 200 MG/20 ML IV ONE (06:58)
[2022-05-17] MEDS ORDERED: Xylocaine-Mpf 2% 5 Ml Vial ONE (06:58)
[2022-05-17] MEDS ORDERED: Versed 2 MG/2 ML Injection ONE (06:58)
[2022-05-17 08:37] VITALS: O2SAT 113
[2022-05-17 08:45] VITALS: BP 132/78; PULSE 74
--- NOTE | 2022-05-17 14:29 | OP ---
SURGERY DATE: 05/17/2022 SURGERY TIME: 0700 PREOPERATIVE DIAGNOSIS: 1. HISTORY OF COLON POLYIPS AND ABDOMINAL PAIN. POSTOPERATIVE DIAGNOSIS: 1. POSSIBLE SIGMOID COLON POLYP AND RECTAL POLYP. PROCEDURE: 1. Colonoscopy with hot snare polypectomy and cold forceps biopsy. SURGEON: Dr. Navarrete. ANESTHESIA: MAC. Medications given by the Anesthesia Department. BRIEF HISTORY: The patient is a 62 y/o WF who presents now for colonoscopic evaluation. She reports that she has been having problems with abdominal pain and previous history of colon polyps. The patient was felt to need to have endoscopic evaluation. She was appraised of the risks of the procedure including the risk of perforation, phlebitis, untoward reaction to medication, bleeding, and missed lesions. The patient verbalized his understanding and desired to have the procedure performed. DESCRIPTION OF PROCEDURE: The patient was given the medications by the Anesthesia Department. He had continuous pulse oximetry, ECG monitoring, intermittent BP monitoring, and end tidal CO2 monitoring during the examination. She was placed in the left lateral decubitus position. A digital rectal examination was performed and revealed normal anal sphincter tone and no masses. The flexible Olympus colonoscope was used to intubate the rectum. A view of the colon was developed sequentially to the cecum. Upon insertion and withdrawal, including a retroflex view in the rectum, was noted an approximately 1 cm polyp in the proximal sigmoid colon. This was removed using the hot polypectomy snare. There were also noted to be small what appeared to be hyperplastic polyps in the rectum. This was biopsied using cold biopsy forceps to determine the nature of the lesion. The scope was removed from the patient who tolerated the procedure well and was sent back to OP recovery in good condition. The prep was noted to be fair with large amounts of liquid stool where was able to be suctioned to see the majority of the colon.
== END 2022-05-17 08:40 | disposition home or self-care (01) ==
LOC: SDC 05:52
PROVIDERS: ATTEND Family Medicine
DX: Z09 Encounter for follow-up examination after completed treatment for conditions other than malignant neoplasm (principal); Z86.010 Personal history of colon polyps; R10.9 Unspecified abdominal pain; D12.5 Benign neoplasm of sigmoid colon; K62.1 Rectal polyp
CPT/HCPCS: J2250; J2704

== ENCOUNTER 2022-09-08 12:07 | Day surgery (SDC) | payer MEDICARE ==
[2022-09-08] MEDS ORDERED: Depo-Medrol 40 MG/ML IM ONE (12:08)
[2022-09-08] MEDS ORDERED: Sodium Chloride 0.9(Preservative Free) 10 ML IJ ONE (12:08)
[2022-09-08] MEDS ORDERED: DIPRIVAN 200 MG/20 ML IV ONE (13:29)
[2022-09-08] MEDS ORDERED: Lactated Ringers 1,000 ML IV ONE (14:05)
--- NOTE | 2022-09-08 14:21 | XRAY ---
18 seconds of fluoroscopy was used in surgery for a caudal AMARA.
--- NOTE | 2022-09-08 14:25 | XRAY ---
Indication: Caudal AMARA. Intraoperative fluoroscopy provided for 18 seconds. 2 digital spot images submitted for interpretation demonstrates caudal needle tip projecting mid sacrum. Small amount of contrast injected for needle tip placement. Correlate with intraoperative findings/report.
== END 2022-09-08 14:00 | disposition home or self-care (01) ==
LOC: SDC-PAIN 12:07
PROVIDERS: ATTEND Psychiatry & Neurology Pain Medicine
DX: M54.16 Radiculopathy, lumbar region (principal); Z79.899 Other long term (current) drug therapy
CPT/HCPCS: 62323; 72220; 77003; J1030; J2704; Q9966

== ENCOUNTER 2022-12-01 11:36 | Day surgery (SDC) | payer MEDICARE ==
[2022-12-01] MEDS ORDERED: Decadron 4 MG INJ IV ONE (11:37)
[2022-12-01] MEDS ORDERED: LIDOCAINE HCL 1% 50 MG/5 ML VL PF IJ ONE (11:37)
[2022-12-01] MEDS ORDERED: DIPRIVAN 200 MG/20 ML IV ONE (13:37)
[2022-12-01] MEDS ORDERED: Zofran 4 MG/2 ML VIAL ONE (13:40)
[2022-12-01] MEDS ORDERED: Lactated Ringers 1,000 ML IV ONE (14:23)
--- NOTE | 2022-12-01 16:33 | XRAY ---
Indication: Bilateral piriformis injection. Intraoperative fluoroscopy provided for 18 seconds. 2 digital spot image submitted for interpretation demonstrates posterior needle tip projecting over the expected left and right piriformis muscles. Small amount of contrast injected for both needle tip placement. Correlate with intraoperative findings/report.
--- NOTE | 2022-12-01 16:37 | XRAY ---
18 seconds of fluoroscopy was used in surgery for a bilateral piriformis injection.
== END 2022-12-01 14:10 | disposition home or self-care (01) ==
LOC: SDC-PAIN 11:36
PROVIDERS: ATTEND Psychiatry & Neurology Pain Medicine
DX: M79.18 Myalgia, other site (principal); Z79.899 Other long term (current) drug therapy
CPT/HCPCS: 20552; 72170; 77002; J1100; J2001; J2405; J2704; Q9966

== ENCOUNTER 2023-03-31 11:13 | Day surgery (SDC) | payer MEDICARE ==
[2023-03-31] MEDS ORDERED: Depo-Medrol 40 MG/ML IM ONE (11:14)
[2023-03-31] MEDS ORDERED: BUPIVACAINE 0.5% VIAL IJ ONE (11:14)
[2023-03-31] MEDS ORDERED: DIPRIVAN 200 MG/20 ML IV ONE (12:25)
[2023-03-31] MEDS ORDERED: Lactated Ringers 1,000 ML IV ONE (12:57)
--- NOTE | 2023-03-31 14:07 | XRAY ---
Indication: Left hip and greater trochanter bursa injection. Intraoperative fluoroscopy provided for 22 seconds. 2 digital spot image submitted for interpretation demonstrates needle tip projecting lateral to left femur neck. Second needle tip lateral to greater trochanter. Small amount of contrast injected for both needle tip placement. Correlate with intraoperative findings/report.
--- NOTE | 2023-03-31 14:43 | XRAY ---
22 seconds of fluoroscopy was used in surgery for a left intra-articular hip and greater trochanteric bursa injection.
== END 2023-03-31 12:47 | disposition home or self-care (01) ==
LOC: SDC-PAIN 11:13
PROVIDERS: ATTEND Psychiatry & Neurology Pain Medicine
DX: M16.12 Unilateral primary osteoarthritis, left hip (principal); Z79.899 Other long term (current) drug therapy
CPT/HCPCS: 20610; 73502; 77002; J1030; J2704; Q9966

== ENCOUNTER 2023-09-28 13:59 | Day surgery (SDC) | payer MEDICARE ==
[2023-09-28] MEDS ORDERED: Sodium Chloride 0.9(Preservative Free) 10 ML IJ ONE (14:00)
[2023-09-28] MEDS ORDERED: Decadron 4 MG INJ IV ONE (14:00)
[2023-09-28] MEDS ORDERED: Lactated Ringers 1,000 ML IV ONE (15:58)
[2023-09-28] MEDS ORDERED: DIPRIVAN 200 MG/20 ML IV ONE (16:08)
--- NOTE | 2023-09-28 20:14 | XRAY ---
Indication: Right L4-S1 transforaminal AMARA. Intraoperative fluoroscopy provided for 24 seconds. 4 digital spot image submitted for interpretation demonstrates posterior needle tips projecting over the expected right L4 and L5 nerve roots. Small amount of contrast injected for needle tip placement. Correlate with intraoperative findings/report.
--- NOTE | 2023-09-29 12:03 | XRAY ---
24 seconds of fluoroscopy was used in surgery for a right L4-S1 transforaminal AMARA.
== END 2023-09-28 16:41 | disposition home or self-care (01) ==
LOC: SDC-PAIN 13:59
PROVIDERS: ATTEND Psychiatry & Neurology Pain Medicine
DX: M54.16 Radiculopathy, lumbar region (principal)
CPT/HCPCS: 64493; 64494; 72100; 77003; J1100; J2704; Q9966

== ENCOUNTER 2024-07-19 13:20 | Day surgery (SDC) | payer MEDICARE ==
[2024-07-19] MEDS ORDERED: Depo-Medrol 40 MG/ML IM ONE (13:21)
[2024-07-19] MEDS ORDERED: Sodium Chloride 0.9(Preservative Free) 10 ML IJ ONE (13:21)
[2024-07-19] MEDS ORDERED: DIPRIVAN 200 MG/20 ML IV ONE (15:13)
--- NOTE | 2024-07-19 16:52 | XRAY ---
Indication: Caudal AMARA. Intraoperative fluoroscopy provided for 13 seconds. 2 digital spot image submitted for interpretation demonstrates caudal needle tip projecting mid sacrum. Small amount of contrast injected for needle tip placement. Correlate with intraoperative findings/report.
--- NOTE | 2024-07-19 16:54 | XRAY ---
13 seconds of fluoroscopy was used in surgery for a caudal AMARA.
== END 2024-07-19 15:38 | disposition home or self-care (01) ==
LOC: SDC-PAIN 13:20
PROVIDERS: ATTEND Psychiatry & Neurology Pain Medicine
DX: M54.16 Radiculopathy, lumbar region (principal)
CPT/HCPCS: 62323; 72220; 77003; J2704